=== PATIENT | female | born 1960 | race Caucasian/White ===

== ENCOUNTER 2016-10-12 14:38 | Emergency (ER) | payer MEDICARE, OTHER ==
[2016-10-12 15:01] VITALS: BP 131/82
[2016-10-12] MEDS ORDERED: HYDROcodone/ACETAMINOPHEN 1 EACH TABLET PO ONE (15:21)
--- NOTE | 2016-10-12 15:22 | ERNOTE ---
Lower Extremity HPI - General Lower Extremities Pain: leg: left Time Seen by Provider: 10/12/16 15:15 Source: patient Exam Limitations: no limitations - Immun/Allergies/Home Medications Immunizations: IMMUNIZATION HX Immunizations Up to Date Yes History of Influenza Vaccine Yes Hx Pneumococcal Vaccination Yes Allergies/Adverse Reactions: Allergies Allergy/AdvReac Type Severity Reaction Status Date / Time amoxicillin trihydrate AdvReac Mild rash Verified 07/26/16 20:22 [From Prevpac] bupropion HCl AdvReac Mild pain/crampi Verified 07/26/16 20:22 [From Wellbutrin] ng clarithromycin [From [facility]] AdvReac Mild rash Verified 07/26/16 20:22 lansoprazole [From [facility]] AdvReac Mild rash Verified 07/26/16 20:22 metformin AdvReac Mild Nausea Verified 07/26/16 20:22 phenobarbital AdvReac Mild Vomiting Verified 07/26/16 20:22 sulfadiazine AdvReac Mild rash Verified 07/26/16 20:22 Home Medications: HOME MEDICATIONS Atorvastatin Calcium [Lipitor] 40 mg PO HS 10/29/14 [Last Taken Unknown] Clonidine HCl [Catapres] 0.2 mg PO BID 10/29/14 [Last Taken Unknown] Lisinopril [Prinivil] 20 mg PO BID 10/29/14 [Last Taken Unknown] glipiZIDE [Glucotrol Xl] 7.5 mg PO BID 10/29/14 [Last Taken Unknown] Aspirin [Aspirin Enteric Coated] 81 mg PO DAILY 05/16/15 [Last Taken Unknown] Docusate Sodium [Colace] 100 mg PO BID 05/16/15 [Last Taken Unknown] Levothyroxine Sodium [Synthroid] 50 mcg PO DAILY 05/16/15 [Last Taken Unknown] Loratadine [Claritin] 10 mg PO DAILY 05/16/15 [Last Taken Unknown] Montelukast Sodium [Singulair] 10 mg PO HS 05/16/15 [Last Taken Unknown] Albuterol Sulfate [Albuterol Sulfate 2.5 MG/0.5ML] 2.5 mg IH Q4H PRN #100 vial.neb 05/29/15 [Last Taken Unknown] Blood Sugar Diagnostic, Drum [Accu-Chek Compact] 1 each ACHS #100 strip 05/29 [Last Taken Unknown] Fluoxetine HCl [Prozac] 40 mg PO DAILY #30 cap 05/29/15 [Last Taken Unknown] Fluticasone/Salmeterol [Advair 250-50 Diskus] 1 puff IH BID #1 inhaler 05/29/15 [Last Taken Unknown] LORazepam [Ativan] 0.5 mg PO TID #90 tablet 05/29/15 [Last Taken Unknown] Ammonium Lactate [Lac-Hydrin] 1 appl TP BID 12/11/15 [Last Taken Unknown] Calcium Carbonate [Calcium] 500 mg PO TID 12/11/15 [Last Taken Unknown] Ergocalciferol (Vitamin D2) [Vitamin D2] 2,000 units PO DAILY 12/11/15 [Last Taken Unknown] Furosemide [Lasix] 40 mg PO DAILY 12/11/15 [Last Taken Unknown] Gabapentin 300 mg PO TID 12/11/15 [Last Taken Unknown] HYDROcodone/ACETAMINOPHEN [Willet 5-325] 2 each PO BID PRN 12/11/15 [Last Taken Unknown] Hydrochlorothiazide 12.5 mg PO DAILY 12/11/15 [Last Taken Unknown] Ibuprofen [Motrin] 800 mg PO QID PRN 12/11/15 [Last Taken Unknown] Insulin Glargine,Hum.rec.anlog [Lantus Solostar] 35 unit SQ 1000 12/11/15 [Last Taken Unknown] Insulin Lispro [Humalog] 35 unit SQ 0700 12/11/15 [Last Taken Unknown] Meclizine HCl [Antivert] 25 mg PO TID PRN 12/11/15 [Last Taken Unknown] Pantoprazole Sodium [Protonix] 40 mg PO DAILY 12/11/15 [Last Taken Unknown] Polyethylene Glycol 3350 [Miralax] 17 gm PO DAILY 12/11/15 [Last Taken Unknown] Spironolactone [Aldactone] 25 mg PO TID 12/11/15 [Last Taken Unknown] Topiramate [Topamax] 50 mg PO BID 12/11/15 [Last Taken Unknown] Zolpidem Tartrate [Ambien] 10 mg PO HS 12/11/15 [Last Taken 03/02/16 21:00] Insulin Glargine,Hum.rec.anlog [Lantus] 50 units SC HS 03/03/16 [Last Taken Unknown] Insulin Lispro [Humalog] 15 unit SQ 1200,1700 03/03/16 [Last Taken Unknown] - History of Present Illness Narrative: Patient is here for a painful 'lump' on her left lateral knee that she has had for a week. It has increased in size and pain. She denies any injuries, never had similar symptoms, has a ganglion cyst on her left foot that she is seeing Dr Colón for, remote history or Gomez's cyst Modifying Factors - (Improves): Reports: rest Modifying Factors - (Worsens): Reports: movement, other - weight bearing Subsequent Symptoms: Denies: sensory loss, numbness Prior Treament: Denies: recently seen, similar symptoms before Review of Systems - Review of Systems Constitutional: Absent: recent illness, fever Respiratory: Absent: shortness of breath Cardiology: Absent: chest pain Gastrointestinal/Abdominal: Absent: abdominal pain Genitourinary: Present: no symptoms reported Musculoskeletal: Present: See HPI Skin: Absent: rash Neurological: Absent: headache, weakness, numbness - Patient's Past Medical History Patient History - Medical: Anemia, Anxiety, Diabetes Type 2, Diabetes Type 2 Insulin Dependent, Depression, GERD, Hypothyroidism, Migraines, Obesity Patient History - Cardiac/Respiratory: Hypertension Patient History - Cancer: No Hx of Cancer Patient History - Surgical Procedures: Appendectomy, Cholecystectomy, Colonoscopy, EGD, Gastric Bypass, Other Patient History - Other: None - Family History Mother Family History - Cardiac/Respiratory: Hypertension, Hyperlipidemia, Myocardial Infarction - Social History Living Situations: alone Abuse History: No History of abuse Psych History: Hx of Anxiety, Hx of Depression Smoking Status: Never smoker Do you dip or chew tobacco: No Patient requests Smoking Cessation Consult: No Initiate information on Smoking Cessation: No Alcohol Use: occasionally Drug Use: none - Immunizations Immunizations Up to Date: Yes Hx Pneumococcal Vaccination: Yes History of Influenza Vaccine: Yes Physical Exam - Physical Exam General Appearance: Present: wd/wn, alert, no apparent distress Respiratory: Present: no respiratory distress Peripheral Pulses: N=norm/S=strong/W=weak/B=bound/A=absent: Dorsalis-pedis (L): Normal Extremity Exam: Present: normal except - - left anteriolateral knee about 2x3cm painful swelling, firm, no erythema, no increased temperature Neurological Exam: Present: alert, oriented, normal mood/affect, no motor/ sensory deficits - except decreased sensation on feet due to neuropathy Skin Exam: Present: normal color, warm/dry ED Progress - Vital Signs Patient's Vital Signs:: I have reviewed the patient's vital signs. Vital Signs: Vital Signs 10/12/16 14:52 Temperature 35.8 C L Pulse Rate 77 Respiratory 18 Rate Blood Pressure 131/82 O2 Sat by Pulse 97 Oximetry - X-Ray X-Ray #1 X-Ray: knee - no acute findings Interpretation: Interp. by me - Progress/Reassessment Chief Complaint: Lower Extremity Pain/ Injury Progress Note-Subjective: 10/12/16 16:15 discussed with shay Pelaez to order out patient ultrasound for further evaluation. 10/12/16 16:25 discussed results and plan with patient Departure Clinical Impression: Knee pain, left Qualifiers: Chronicity: acute Qualified Code(s): M25.562 - Pain in left knee - Departure Disposition: Home self-care Condition: Good Instructions: Knee Pain, [id number], Form - Excuse from Work, School, or Physical Activity Additional Instructions: take your pain medications as instructed limit your activities follow up for the ultrasound on Friday call your doctor for a follow up appointment Referrals: Saray Ramirez DO [Staff Physician] -
--- OUTSIDE RECORDS SUMMARY | 2016-10-12 15:24 | XMS REPORT | Continuity of Care Document ---
:1960 Author Organization [facility] ([facility]) Address [address] [place] [address] Phone [phone] Care Team Providers Name Role Phone Althea Raymundo Primary Care Provider [phone] Source Comments This disclosure is being made pursuant to the Care Everywhere program, applicable federal and state laws, and may not contain all informaitonavailable regarding this patient.[facility] ([facility]) Active Allergies and Adverse Reactions Allergen Noted Date Severity Reactions Comments Bupropion 11/27/2010 Urticaria (Hives),Rash Fluconazole 11/27/2010 Urticaria (Hives),Rash Liraglutide 11/27/2010 Urticaria (Hives),Rash Metformin 11/27/2010 Urticaria (Hives),Rash Phenobarbital Pruritus Sulfadoxine Urticaria (Hives) Current Medications Prescription Sig. Disp. Refills Start End Status Date Date SUPPLY FREESTYLE LITE by In Vitro route 1 Each 0 11/13/19 Active meter daily. 14 Indications: TYPE 2 DIABETES MELLITUS SUPPLY blood glucose 3 times daily. 100 Strip 04/14/20 Active test strips Indications: 14 DIABETES MELLITUS SUPPLY FREESTYLE As Directed 150 Each 04/14/20 Active lancets Indications: 14 DIABETES MELLITUS aspirin 81 mg EC Take 1 Tab by 60 Tab 04/14/20 Active tablet mouth daily. 14 Indications: MYOCARDIAL INFARCTION PREVENTION zolpiDEM 10 mg tablet Take by mouth at Active bedtime as needed. ammonium lactate 12 % Apply topically Active lotion as needed. Rub into affected area well. calcium carbonate (500 Take 500 mg by Active mg Ca) 1250 mg tablet mouth daily. cloNIDine 0.1 mg/24 hr Apply 1 Patch on Active patch the skin every week. FLUoxetine 40 mg Take 40 mg by Active capsule mouth daily. gabapentin 300 mg Take 300 mg by Active capsule mouth 3 times daily. furosemide 20 mg Take 20 mg by Active tablet mouth 3 times daily. levothyroxine 50 mcg Take 50 mcg by Active tablet mouth every morning before breakfast. loratadine 10 mg Take 10 mg by Active tablet mouth daily. LORazepam 0.5 mg Take 0.5 mg by Active tablet mouth every 4 hours as needed. meclizine 25 mg tablet Take 25 mg by Active mouth 3 times daily as needed. topiramate 50 mg Take 50 mg by Active tablet mouth 2 times daily. cholecalciferol 50,000 Take 1 capsule by Active unit capsule mouth every week. fluticasone-salmeterol Use 1 Puff by Active (ADVAIR 250-50) inhalation every inhaler 12 hours. insulin lispro 35 units at 50 mL 3 02/29/20 Active (HumaLOG KWIKPEN) 100 breakfast, 15 at 16 unit/mL (3 mL) lunch & 15 at injection pen dinner cloNIDine HCl 0.2 mg Take 0.5 tablets 120 tablet 6 02/29/20 Active tablet (0.1 mg total) by 16 mouth at bedtime. cyclobenzaprine 10 mg Take 1 tablet (10 60 tablet 0 02/29/20 Active tablet mg total) by 16 mouth 3 times daily as needed. docusate 100 mg Take 1 capsule 60 capsule 0 02/29/20 Active capsule (100 mg total) by 16 mouth 2 times daily. fluticasone 50 Use 2 Sprays into 02/29/20 Active mcg/Actuation nasal both nostrils 16 spray daily. lisinopril 20 mg Take 0.5 tablets 120 tablet 6 02/29/20 Active tablet (10 mg total) by 16 mouth daily. Replace Losartan. pantoprazole Take 1 tablet (40 60 tablet 3 02/29/20 Active (PROTONIX) 40 mg EC mg total) by 16 tablet mouth daily. Patient verified/ confirmed that she tolerates medication well. atorvastatin 40 mg Take 1 tablet (40 60 tablet 3 02/29/20 Active tablet mg total) by 16 mouth every evening. Replace Zocor. famotidine 40 mg Take 1 tablet (40 60 tablet 2 02/29/20 Active tablet mg total) by 16 mouth every evening. ibuprofen 800 mg Take 1 tablet 90 tablet 0 08/04/20 Active tablet (800 mg total) by 16 mouth every 6 hours as needed. SUPPLY BD ULTRA-FINE Inject 100 Each 3 09/24/19 Active NOLVIA 32 x 4 MM pen subcutaneously 4 17 needle times daily. polyethylene glycol Take 17 g by Active 3350 17 gram packet mouth daily as needed. amitriptyline 50 mg Take 50 mg by Active tablet mouth at bedtime. HYDROcodone-acetaminop Take 1 tablet by Active hen 5-325 mg per mouth every 6 tablet hours as needed. albuterol-ipratropium Use 3 mL by Active 2.5-0.5 mg/3 mL inhalation every inhalation solution 4 hours as needed for Wheezing or Shortness of breath. insulin glargine Inject 50 Units Active (LanTUS SOLOSTAR) 100 subcutaneously 2 unit/mL (3 mL) times daily. injection pen SUPPLY BD ULTRA-FINE inject 100 Each 3 04/14/20 Discontinued NOLVIA 32 x 4 MM pen subcutaneously 4 14 017 needle times daily. Indications: TYPE 2 DIABETES MELLITUS acetaminophen 325 mg Take 325 mg by Discontinued tablet mouth every 4 017 hours as needed. albuterol 5 mg/mL Use 2.5 mg by Discontinued nebulizer solution inhalation every 017 4 hours as needed. polyethylene glycol Take 17 g by Discontinued 3350 17 gram packet mouth daily as 017 needed. cefUROXime (CEFTIN) Take 500 mg by Discontinued 500 mg tablet mouth 2 times 017 daily. gentamicin 0.1 % Apply topically 2 Discontinued ointment times daily. 017 glipiZIDE 10 mg tablet Take 1.5 tablets 180 tablet 6 02/29/20 Discontinued (15 mg total) by 16 017 mouth 2 times daily with meals. hydrochlorothiazide Take 1 tablet 60 tablet 6 02/29/20 Discontinued 12.5 mg tablet (12.5 mg total) 16 017 by mouth daily. 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 Cataract, senile 02/13/2011 DM type 2 (diabetes mellitus, type 2) 11/27/2010 HTN (hypertension) 11/27/2010 GERD (gastroesophageal reflux disease) 11/27/2010 Dyslipidemia 11/27/2010 JAY (obstructive sleep apnea) 11/27/2010 Morbid obesity 11/04/2008 Resolved Problems Problem Noted Date Resolved Date Rash and nonspecific skin eruption 06/18/2013 11/29/2013 Foot pain 05/13/2013 01/31/2014 Ganglion cyst 02/16/2013 01/31/2014 BPPV (benign paroxysmal positional vertigo) 08/18/2012 04/27/2014 Colon cancer screening 10/01/2011 11/29/2013 Most Recent Encounters Date Type Specialty Providers Description 10/10/2016 Telephone Pharmacy Nica Chavira, Chief Comp: [facility] Scheduling 10/07/2016 Telephone General Internal Jf Chief Comp: Advice Medicine Mariza Adams MD Only 10/03/2016 Office Visit General Internal Kathryn Perera Subj: Upcoming Appt Medicine MD Ashley Reminder 10/03/2016 Office Visit General Internal Default, Other Subj: Appointment Medicine Billg - Defo Scheduled 10/03/2016 Telephone Pharmacy Nica Chavira, Chief Comp: [facility] Scheduling 10/02/2016 Nurse Triage Med GI/Hepatology Tracey Hodges, Chief Comp: Post- op RN Follow-up Call 10/01/2016 Hospital Encounter Med GI/Hepatology Gil, Dx: Weight loss MD Snehal 09/30/2016 Telephone Pharmacy Nica Chavira, Chief Comp: [facility] Scheduling 09/25/2016 Telephone General Internal Kathryn Perera Chief Comp: Follow- up Alba Ramirez MD 09/24/2016 Office Visit General Internal Torsten Conte Subj: Appointment Medicine MD Shima Scheduled 09/24/2016 Hospital Encounter Radiology Lance Cosby, Dx: Weight huey VERONICA 09/24/2016 Office Visit Pathology Kathryn Perera Dx: DM (michael Ramirez MD mellitus), type 2 Lab Services, Irl with neurological complications 09/24/2016 Office Visit General Internal Torsten Conte Dx: DM (diabetes Medicine MD Shima mellitus), type 2 Default, Other with neurological Billg - Defo complications Kathryn Perera (Primary Dx) MD Bhumika Ramirez Katherine, MD 09/24/2016 Ancillary Orders General Internal Bhumika Dx: Weight loss Medicine MD Sulema (Primary Dx) Immunizations Name Dates Previously Given Next Due Influenza, PF 07/30/2012,10/01/2011 Influenza, quadrivalent PF 06/03/2016,05/25/2015,05/13/2013 Novel Influenza H1N1 05/11/2009 Pneumococcal Conjugate, PCV13 (Prevnar 13) 06/03/2016 Pneumococcal Polysaccharide, PPSV23 05/27/2015,03/19/2011 (Pneumovax 23) Tdap 09/10/2015,03/19/2011 Social History Tobacco Use Types Packs/Day Years Used Date Never Smoker Smokeless Tobacco: Never Used Tobacco Cessation:Counseling Given: Yes Comments: Alcohol Use Drinks/Week oz/Week Comments No 2 Glasses of wine once a week 2 Standard drinks or equivalent Last Filed Vital Signs Vital Sign Reading Time Taken Blood Pressure 149/69 10/01/2016 9:41 AM [employer] Pulse 73 09/24/2016 12:43 PM [employer] Temperature 36.3 C (97.3 F) 10/01/2016 8:47 AM [employer] Respiratory Rate 16 10/01/2016 7:22 AM [employer] Height 1.676 m (5' 5.98") 02/29/2016 8:50 AM CDT Weight 120.45 kg (265 lb 8.7 oz) 10/01/2016 7:15 AM [employer] Body Mass Index 42.88 10/01/2016 7:15 AM [employer] Oxygen Saturation 96% 10/01/2016 9:41 AM [employer] Plan of Care Patient Goal Type Goal Result Component % HBA1C below 7.0 Lifestyle declined wishes Date Type Specialty Providers Description 10/28/2016 Appointment General Internal Kathryn Perera MD [address] [place] [phone] (Fax) Subj: Appointment Medicine Ivette Eli MD [address] [place] [phone] (Fax) Rescheduled Althea Raymundo MD [address] [place] [phone] (Fax) 12/05/2016 Appointment General Internal Sulema Restrepo MD [address] [place] [phone] (Fax) Subj: Appointment Medicine Althea Raymundo MD [address] [place] [phone] (Fax) Scheduled Health Maintenance Due Date Last Done Comments HCV Screening 1960 Hepatitis B Vaccine (1 of 3 - 1960 Primary Series) MMR Vaccine 01/31/1976 Sigmoidoscopy Colon Cancer 01/31/2008 Screening FOBT Colon Cancer Screening 09/29/2013 09/29/2012 DIABETIC: Retinal Eye Exam 05/13/2014 05/13/2013, Additional history exists 05/13/2013, 05/13/2012 DIABETIC: Foot Exam 10/25/2014 10/25/2013, Additional history exists 10/25/2013, 08/18/2012 DIABETIC: Cholesterol 04/27/2015 04/27/2014, Additional history exists 02/09/2013, 03/04/2012 Diabetic: Hdl 04/27/2015 04/27/2014, Additional history exists 02/09/2013, 03/04/2012 Diabetic: Ldl 04/27/2015 04/27/2014, Additional history exists 02/09/2013, 03/04/2012 DIABETIC: Triglycerides 04/27/2015 04/27/2014, Additional history exists 02/09/2013, 03/04/2012 Mammogram 01/29/2017 2016, Additional history exists 09/20/2014, 10/26/2013 DIABETIC: Microalbumin 02/28/2017 02/29/2016, Additional history exists 04/27/2014, 02/16/2013 DIABETIC: Hemoglobin A1C 03/24/2017 09/24/2016, Additional history exists 02/29/2016, 01/31/2014 Cervical Cancer Screening 08/09/2018 08/09/2013 Colonoscopy 03/24/2023 03/24/2013 Td Vaccine 09/10/2025 09/10/2015, 03/19/2011 Tdap Vaccine Completed 09/10/2015, 03/19/2011 Influenza Vaccine: Seasonal Completed 06/03/2016, Additional history exists 05/25/2015, 05/13/2013 Pneumococcal Vaccine Completed 06/03/2016, 05/27/2015, 03/19/2011 Results from Last 3 Months ENDOSCOPY UPPER (10/04/2016 1:09 PM) Narrative Snehal Cordero MD 10/04/20161:09 PM ENDOSCOPY UPPER Upper GI Procedure Note PROCEDURE DATE:10/01/2016 PROCEDURE: Upper gastrointestinal endoscopy Pre-procedure Diagnosis: GERD, unintentional weight loss ATTENDING STAFF: Chen Cordero MD REFERRING PHYSICIAN: This procedure was arranged by Sulema Bai MD CONSENT FOR OPERATION OR PROCEDUREThe risks, benefits, and alternatives of the procedure and sedation were discussed with the patient in detail today and written consent was obtained. The patient elects to proceed with the procedure and sedation as outlined. PROCEDURAL MEDICATIONS: Propofol 240 mg IV Oxygen at 2L/min NC Lidocaine spray The procedure sedation was given under my direction from 10/01/16 8:23 AM to 178:35 AM. PHOTOGRAPHS: Yes BIOPSIES: Yes DESCRIPTION OF PROCEDURE: Prior to proceeding, the patient's name, date of , and procedure to be undertaken was verified at the time out.The patient was then placed in the left lateral decubitus position and was monitored continuously with pulse oximetry, blood pressure monitoring, and direct observations. The oropharynx was adequately anesthetized with Lidocaine spray.Adequate analgesia was achieved. Anendoscope was then placed in the oropharynx and advanced. The vocal cords were visualized and the esophagus was easily intubated. The endoscope was advanced under direct vision to second portion of the duodenum. FINDINGS: Esophagus: The mucosa of the esophagus was normal without erythema, edema, ulcers, or varices. The lower esophageal sphincter was located at 40 cm from the incisors. There was a small 3 mm island of salmon colored mucosa above GEJ. Biopsies were obtained. Stomach: The mucosa of the stomach was normal without signs of inflammation. There were no ulcers or erosions and no masses or polyps were present. Retroflexion of the scope in the fundus confirmed the absence of a hernia/gastric varices. Postsurgical changes of VBG with residual deformation of the gastric fundus . Duodenum: The bulb was of normal caliber and not scarred or deformed. The mucosa from D1 to D-2 was normal and no ulcers or erosions were present. COMPLICATIONS: There were no complications or problems during the procedure and the patient returned to the recovery area in good condition. IMPRESSIONS: 3 mm possible Figueroa's and post surgical changes of VBG. These finding will no explain weight loss. Repeat EGD in 3-5 years. PLAN: Follow up with PCP. Chen Michaud MD Clinical Tool Maintenance Worker Division of Gastroenterology-Hepatology Department of Internal Medicine [facility] I have examined this chart produced by the scribe and find it to be accurate. Post Sedation Evaluation Blood pressure: 148/74 (178:17 AM) Pulse: 69 (178:23 AM) 71 (178:23 AM) Temperature: 97 (177:22 AM) Temp. Source: Tympanic (177:22 AM) Respiratory rate: 11 (178:23 AM) SpO2: 100 (178:23 AM) Pain: None Nausea and Vomiting: Absence of nausea/vomiting (139:40 AM) Level of Consciousness: Alert Airway Patency: Full I have personally evaluated the patient prior to discharge. Snehal Cordero MD Addendum: Path Gastroesophageal junction, biopsy: Inflamed squamocolumnar mucosa consistent with reflux. Focal intestinal metaplasia. SURGICAL PATHOLOGY EXAM (10/01/2016 8:33 AM) Component Value Range Case Report Surgical Pathology Case: [id number] Authorizing Provider:Snehal Cordero, Collected: 10/01/2016 08:33 AM Ordering Location: [facility] Received: 10/01/2016 09:46 AM Diseases: Procedure Unit Pathologist: Hi Flores MD Specimen:Esophagus, GEJ Diagnosis Gastroesophageal junction, biopsy: Inflamed squamocolumnar mucosa consistent with reflux. Focal intestinal metaplasia. I have personally reviewed this case and edited the report as necessary. Clinical Information GEJ- short Figueroa's? Gross Description Received in formalin, in a container labeled Kendra Lewis, hospital number, and "GEJ", are four zimmerman-pink soft tissue fragments, 0.2 to 0.3 cm in greatest dimension. Submitted in toto in A1. LRL/tkr Microscopic Description Microscopic examination performed and supports the diagnosis. Performed by:Drew Lovett DO, R3 Specimen Tissue - Esophagus BLOOD GLUCOSE, BEDSIDE (10/01/2016 7:39 AM) Component Value Range Glucose, Accu-Chek 331(H) 65-99 mg/dL Specimen Blood, capillary CHEST- PA& LATERAL (09/24/2016 2:47 PM) Impressions Findings and impression: Grossly stable exam with no new focal lung infiltrate, pleural disease or pulmonary edema. Trachea central. 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 Narrative Procedure: CHEST- PA & LATERAL Clinical Indication: History of COPD. Technique: PA and lateral chest radiograph Comparison: 02/09/2013. Procedure Note Dave, Incoming Imaging Results - FriSep 24, 2016 3:12 PM [employer] Procedure: CHEST- PA & LATERAL Clinical Indication: History of COPD. Technique: PA and lateral chest radiograph Comparison: 02/09/2013. IMPRESSION Findings and impression: Grossly stable exam with no new focal lung infiltrate, pleural disease or pulmonary edema. Trachea central. 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 B-HYDROXYBUTYRATE (09/24/2016 2:32 PM) Component Value Range Beta-Hydroxybutyrate <0.1 0.0-0.3 mEq/L Specimen Blood OSMOLALITY, PLASMA (09/24/2016 2:32 PM) Component Value Range Osmolality, Plasma 295 275-295 mOsm/kg Specimen Blood VITAMIN B12 (09/24/2016 2:32 PM) Component Value Range Vitamin B12 608Comment: 211-946 pg/mL New analytical immunoassay with different reference range instituted 06/22/2013 AT 830AM Normal 211 - 946 pg/mL Losnbtotcyrta366 - 210 pg/mL Deficient<150pg/mL Specimen Blood HEPATIC FUNCTION PANEL (09/24/2016 2:32 PM) Component Value Range Albumin 3.7 3.4-4.8 g/dL ALP 159(H) 35-104 U/L Bilirubin Total 0.6 <=1.2 mg/dL Bilirubin, Direct <0.2 0.0-0.2 mg/dL AST 14Comment: 0-32 U/L Adult reference ranges updated on 06/22/13 at 830am ALT 14Comment: 0-33 U/L The upper limit of normal for alanine aminotransferase (ALT) reference ranges for adults is controversial with some authorities recommending limit as low as 30 U/L for males and 19 U/L for females. Th ere is increased incidence of subclinical liver disease (e.g., early steatohepatitis) in patients with ALT values in the range of 31-41 U/L for males and 20-33 U/L for females. ALT values should alway s be interpreted in conjunction with clinical history, physical examination findings, and, if applicable, data from other diagnostic tests. Total Protein 7.4 6.0-8.0 g/dL Specimen Blood BASIC METABOLIC PANEL W/ CALCIUM (CHEM 8) (09/24/2016 2:32 PM) Component Value Range Sodium 133(L) 135-145 mEq/L Potassium 3.6 3.5-5.0 mEq/L Chloride 92(L) 95-107 mEq/L CO2 28 22-29 mEq/L Anion Gap 14 8-18 mEq/L BUN 15 10-20 mg/dL Creatinine 0.7Comment: 0.5-1.0 mg/dL Creatinine switched to enzymatic method on 12/04/2010.GFR equation switched to IDMS-traceable MDRD equation on 12/04/2010. Calculated GFR values are not valid in clinical settings where serum creatinine is changing. Glucose 506(HH)Comment: 65-99 mg/dL The Expert Committee on the Diagnosis and Classification of Diabetes has defined impaired fasting glucose as greater than or equal to 100 mg/dL but less than 126 mg/dL.(Diabetes Care 28 (Suppl 1)S41,2005) Calcium 8.9 8.5-10.5 mg/dL Calculated GFR 86 >60 mL/min/1.73 m2 Specimen Blood HEMOGLOBIN A1C (09/24/2016 2:32 PM) Component Value Range Hemoglobin A1c 14.8(H)Comment: 4.8-6.0 % Glycemic Control Guidelines: Non-diabetic <6% Goal <7% Therapeutic Action >8% Estimated Average Glucose 378Comment: mg/dL The estimated average glucose (eAG) calculated from the HbA1c changed on 16/03.See Laboratory Bulletins in the Department of Pathology Laboratory Services Handbook for a full discussion.Not e that the new calculated glucose will now be lower.The A1c result is unchanged. Specimen Whole Blood
[2016-10-12] MEDS ORDERED: HYDROcodone/ACETAMINOPHEN 1 EACH TABLET ONE (15:28)
== END 2016-10-12 16:49 | disposition home or self-care (01) ==
LOC: ER 14:38
DX: M25.562 Pain in left knee (principal); E11.9 Type 2 diabetes mellitus without complications; Z79.4 Long term (current) use of insulin; I10 Essential (primary) hypertension; F41.9 Anxiety disorder, unspecified

== ENCOUNTER 2016-11-14 17:57 | Emergency (ER) | payer MEDICARE, OTHER ==
[2016-11-14 18:07] VITALS: BP 140/88
[2016-11-14] MEDS ORDERED: KETOROLAC TROMETHAMINE 60 MG/2 ML VIAL IM ONE (18:40)
--- NOTE | 2016-11-14 19:00 | ERNOTE ---
Lower Extremity HPI - Narrative Date of Service: 11/14/16 - General Lower Extremities Pain: leg: left - cramping Time Seen by Provider: 11/14/16 18:40 Source: patient Exam Limitations: no limitations - Immun/Allergies/Home Medications Immunizations: IMMUNIZATION HX Immunizations Up to Date Yes History of Influenza Vaccine Yes Hx Pneumococcal Vaccination Yes Allergies/Adverse Reactions: Allergies Allergy/AdvReac Type Severity Reaction Status Date / Time amoxicillin trihydrate AdvReac Mild rash Verified 11/14/16 18:07 [From Prevpac] bupropion HCl AdvReac Mild pain/crampi Verified 11/14/16 18:07 [From Wellbutrin] ng clarithromycin [From [facility]] AdvReac Mild rash Verified 11/14/16 18:07 lansoprazole [From [facility]] AdvReac Mild rash Verified 11/14/16 18:07 metformin AdvReac Mild Nausea Verified 11/14/16 18:07 phenobarbital AdvReac Mild Vomiting Verified 11/14/16 18:07 sulfadiazine AdvReac Mild rash Verified 11/14/16 18:07 Home Medications: HOME MEDICATIONS Atorvastatin Calcium [Lipitor] 40 mg PO HS 10/29/14 [Last Taken Unknown] Clonidine HCl [Catapres] 0.2 mg PO BID 10/29/14 [Last Taken Unknown] Lisinopril [Prinivil] 20 mg PO BID 10/29/14 [Last Taken Unknown] glipiZIDE [Glucotrol Xl] 7.5 mg PO BID 10/29/14 [Last Taken Unknown] Aspirin [Aspirin Enteric Coated] 81 mg PO DAILY 05/16/15 [Last Taken Unknown] Docusate Sodium [Colace] 100 mg PO BID 05/16/15 [Last Taken Unknown] Levothyroxine Sodium [Synthroid] 50 mcg PO DAILY 05/16/15 [Last Taken Unknown] Loratadine [Claritin] 10 mg PO DAILY 05/16/15 [Last Taken Unknown] Montelukast Sodium [Singulair] 10 mg PO HS 05/16/15 [Last Taken Unknown] Albuterol Sulfate [Albuterol Sulfate 2.5 MG/0.5ML] 2.5 mg IH Q4H PRN #100 vial.neb 05/29/15 [Last Taken Unknown] Blood Sugar Diagnostic, Drum [Accu-Chek Compact] 1 each ACHS #100 strip 05/29 [Last Taken Unknown] FLUoxetine HCL [Prozac] 40 mg PO DAILY #30 cap 05/29/15 [Last Taken Unknown] Fluticasone/Salmeterol [Advair 250-50 Diskus] 1 puff IH BID #1 inhaler 05/29/15 [Last Taken Unknown] LORazepam [Ativan] 0.5 mg PO TID #90 tablet 05/29/15 [Last Taken Unknown] Ammonium Lactate [Lac-Hydrin] 1 appl TP BID 12/11/15 [Last Taken Unknown] Calcium Carbonate [Calcium] 500 mg PO TID 12/11/15 [Last Taken Unknown] Ergocalciferol (Vitamin D2) [Vitamin D2] 2,000 units PO DAILY 12/11/15 [Last Taken Unknown] Furosemide [Lasix] 40 mg PO DAILY 12/11/15 [Last Taken Unknown] Gabapentin 300 mg PO TID 12/11/15 [Last Taken Unknown] HYDROcodone/ACETAMINOPHEN [Sargent 5-325] 2 each PO BID PRN 12/11/15 [Last Taken Unknown] Hydrochlorothiazide 12.5 mg PO DAILY 12/11/15 [Last Taken Unknown] Ibuprofen [Motrin] 800 mg PO QID PRN 12/11/15 [Last Taken Unknown] Insulin Glargine,Hum.rec.anlog [Lantus Solostar] 35 unit SQ 1000 12/11/15 [Last Taken Unknown] Insulin Lispro [Humalog] 35 unit SQ 0700 12/11/15 [Last Taken Unknown] Meclizine HCl [Antivert] 25 mg PO TID PRN 12/11/15 [Last Taken Unknown] Pantoprazole Sodium [Protonix] 40 mg PO DAILY 12/11/15 [Last Taken Unknown] Polyethylene Glycol 3350 [Miralax] 17 gm PO DAILY 12/11/15 [Last Taken Unknown] Spironolactone [Aldactone] 25 mg PO TID 12/11/15 [Last Taken Unknown] Topiramate [Topamax] 50 mg PO BID 12/11/15 [Last Taken Unknown] Zolpidem Tartrate [Ambien] 10 mg PO HS 12/11/15 [Last Taken 03/02/16 21:00] Insulin Glargine,Hum.rec.anlog [Lantus] 50 units SC HS 03/03/16 [Last Taken Unknown] Insulin Lispro [Humalog] 15 unit SQ 1200,1700 03/03/16 [Last Taken Unknown] - History of Present Illness Narrative: 56-year-old female presents to the emergency room for complaints of bilateral leg cramping. States that she has had this before and he had low potassium. States that today while walking her right leg gave out and she fell and landed on her right shoulder. She does have right shoulder pain at this time. She has not taken anything for her pain. Date (Duration): 11/14/16 Occurred: this morning Location of Incident: [facility] Method of Injury: Reports: fell Reason for Fall: Reports: tripped Loss of Consciousness: Reports: no loss of consciousness Associated Symptoms: Denies: unable to bear weight, snapping, popping sensation Other Injuries: Reports: other - right shoulder Subsequent Symptoms: Reports: motor loss - right shoulder Prior Treament: Reports: similar symptoms before Review of Systems - Review of Systems Constitutional: Present: no symptoms reported EYE: Present: no symptoms reported ENT: Present: no symptoms reported Respiratory: Present: no symptoms reported Cardiology: Present: no symptoms reported Gastrointestinal/Abdominal: Present: no symptoms reported Genitourinary: Present: no symptoms reported Musculoskeletal: Present: See HPI Skin: Present: no symptoms reported Neurological: Present: See HPI, other - decreased ROM to right arm Endocrine: Present: no symptoms reported Hematologic/Lymphatic: Present: no symptoms reported Psych: Present: no symptoms reported All Other Systems: All systems neg except as marked - Patient's Past Medical History Patient History - Medical: Anemia, Anxiety, Diabetes Type 2, Diabetes Type 2 Insulin Dependent, Depression, GERD, Hypothyroidism, Migraines, Obesity Patient History - Cardiac/Respiratory: Hypertension Patient History - Cancer: No Hx of Cancer Patient History - Surgical Procedures: Appendectomy, Cholecystectomy, Colonoscopy, EGD, Gastric Bypass, Other Patient History - Other: None - Family History Mother Family History - Cardiac/Respiratory: Hypertension, Hyperlipidemia, Myocardial Infarction - Social History Living Situations: home Abuse History: No History of abuse Psych History: Hx of Anxiety, Hx of Depression Alcohol Use: occasionally Drug Use: none - Immunizations Immunizations Up to Date: Yes Hx Pneumococcal Vaccination: Yes History of Influenza Vaccine: Yes Physical Exam - Physical Exam Narrative: patient has difficulty with abduction of right arm. bilateral hand grasp equal, knee reflex equal. General Appearance: Present: wd/wn, alert, no apparent distress Eye Exam: Normal inspection: bilateral Ears, Nose, Throat: Present: normal ENT inspection Neck: Present: normal inspection Respiratory: Present: no respiratory distress, chest nontender, lungs clear Cardiovascular/Chest: Present: regular rate, rhythm, normal peripheral pulses Peripheral Pulses: N=norm/S=strong/W=weak/B=bound/A=absent: Radial (R): Normal, Radial (L): Normal, Dorsalis-pedis (R): Normal, Dorsalis-pedis (L): Normal Gastrointestinal/Abdominal: Present: normal bowel sounds, soft Back Exam: Present: normal inspection, normal range of motion Extremity Exam: Present: normal except -, decreased range of motion - right shoulder Neurological Exam: Present: alert, oriented, normal mood/affect, no motor/ sensory deficits, lap layer II-XII nml as tested DTR: N=norm/NB=norm/brisk/A=abs/DD=dull/dimin/HC=hyperactive: Knee (R): Normal, Knee (L): Normal Skin Exam: Present: normal color, warm/dry Lymphatic Exam: Present: no adenopathy ED Progress - Vital Signs Vital Signs: Vital Signs 11/14/16 18:02 Temperature 35.9 C L Pulse Rate 67 Respiratory 12 Rate Blood Pressure 140/88 O2 Sat by Pulse 95 Oximetry - X-Ray X-Ray #1 X-Ray: shoulder Interpretation: Reviewed by me X-ray Comments: Shoulder 3 of More Views RT * Decreased mineralization of bone suggestive of underlying osteopenia or osteoporosis. No definable fracture lucency or cortical discontinuity. Joint spaces are in gross normal alignment without subluxation or dislocation. Acromioclavicular joint in normal alignment without abnormal widening. Degenerative changes of the right acromioclavicular joints noted. Patient has a prominent keel like osteophyte projecting inferiorly and anteriorly from the acromion which can contribute to impingement. Mild reactive sclerosis at the greater tuberosity of the proximal humerus may indicate underlying rotator cuff pathology. Soft tissues are grossly normal. Visualized portions of the chest grossly unremarkable. IMPRESSION: 1. No definable fracture or dislocation. 2. Right acromioclavicular joint degenerative arthropathy. 3. Keel-like osteophyte of the acromion which can contribute to impingement. 4. Findings suggestive of underlying rotator cuff pathology. Correlate clinically. Electronically signed by Wendi Eason M.D.. - Progress/Reassessment Chief Complaint: Lower Extremity Pain/ Injury Plan - Plan Plan: patient refused to have US of legs to check for blood clots. Patients calves are not red, swollen or painful. She does state she has cramps in her calves. Patient educated on need for procedure. Patient states she will follow up with her PCP in the AM. Departure Clinical Impression: Hyperglycemia due to type 1 diabetes mellitus - Departure Disposition: Home Follow Up Needed Condition: Stable Instructions: Hyperglycemia, Klmi-en-Auzu Additional Instructions: Continue any previous home medications. Follow-up through primary care doctor in the next 2-3 days. Return to the emergency room if symptoms persist or become worse. Referrals: Saray Ramirez DO [Primary Care Provider] -
[2016-11-14] MEDS ORDERED: KETOROLAC TROMETHAMINE 30 MG/ML VIAL ONE (19:04)
[2016-11-14 19:05] LABS: Hematocrit 38.2 % (37.0-47.0); Mean Cell Volume 83.6 fl (78-100); Mean Corpuscular Hemoglobin 26.3 pg (27-31); Mean Corpuscular Hgb Conc 31.4 g/dl (32-36); Neutrophil # 6.1 K/mm3 (1.3-6.0); Neutrophil % 53.9 % (42-75.0); Platelet Count 362 K/mm3 (150-450); Red Blood Count 4.57 M/mm3 (4.2-5.4); Red Cell Distribution Width 13.8 % (11.5-14.0); White Blood Count 11.3 K/mm3 (4.0-10.5)
--- OUTSIDE RECORDS SUMMARY | 2016-11-14 19:12 | XMS REPORT | Continuity of Care Document ---
:1960 Author Organization [facility] ([facility]) Address [address] [place] [address] Phone [phone] Care Team Providers Name Role Phone Althea Raymundo Primary Care Provider [phone] Source Comments This disclosure is being made pursuant to the Care Everywhere program, applicable federal and state laws, and may not contain all informaitonavailable regarding this patient.[facility] ([facility]) Active Allergies and Adverse Reactions Allergen Noted Date Severity Reactions Comments Bupropion 11/27/2010 Urticaria (Hives),Rash Fluconazole 11/27/2010 Urticaria (Hives),Rash Liraglutide 11/27/2010 Urticaria (Hives),Rash Metformin 11/27/2010 Urticaria (Hives),Rash Phenobarbital Pruritus Sulfadoxine Urticaria (Hives) Current Medications Prescription Sig. Disp. Refills Start Date End Date Status SUPPLY FREESTYLE LITE by In Vitro route 1 Each 0 11/12/2013 Active meter daily. Indications: TYPE 2 DIABETES MELLITUS SUPPLY blood glucose 3 times daily. 100 Strip 04/14/2014 Active test strips Indications: DIABETES MELLITUS SUPPLY FREESTYLE As Directed 150 Each 04/14/2014 Active lancets Indications: DIABETES MELLITUS aspirin 81 mg EC Take 1 Tab by mouth 60 Tab 04/14/2014 Active tablet daily. Indications: MYOCARDIAL INFARCTION PREVENTION zolpiDEM 10 mg tablet Take by mouth at Active bedtime as needed. ammonium lactate 12 % Apply topically as Active lotion needed. Rub into affected area well. calcium carbonate Take 500 mg by Active (500 mg Ca) 1250 mg mouth daily. tablet cloNIDine 0.1 mg/24 Apply 1 Patch on Active hr patch the skin every week. FLUoxetine 40 mg Take 40 mg by mouth Active capsule daily. gabapentin 300 mg Take 300 mg by Active capsule mouth 3 times daily. furosemide 20 mg Take 20 mg by mouth Active tablet 3 times daily. levothyroxine 50 mcg Take 50 mcg by Active tablet mouth every morning before breakfast. loratadine 10 mg Take 10 mg by mouth Active tablet daily. LORazepam 0.5 mg Take 0.5 mg by Active tablet mouth every 4 hours as needed. meclizine 25 mg Take 25 mg by mouth Active tablet 3 times daily as needed. topiramate 50 mg Take 50 mg by mouth Active tablet 2 times daily. cholecalciferol Take 1 capsule by Active 50,000 unit capsule mouth every week. fluticasone-salmetero Use 1 Puff by Active l (ADVAIR 250-50) inhalation every 12 inhaler hours. insulin lispro 35 units at 50 mL 3 02/29/2016 Active (HumaLOG KWIKPEN) 100 breakfast, 15 at unit/mL (3 mL) lunch & 15 at injection pen dinner cloNIDine HCl 0.2 mg Take 0.5 tablets 120 tablet 6 02/29/2016 Active tablet (0.1 mg total) by mouth at bedtime. cyclobenzaprine 10 mg Take 1 tablet (10 60 tablet 0 02/29/2016 Active tablet mg total) by mouth 3 times daily as needed. docusate 100 mg Take 1 capsule (100 60 capsule 0 02/29/2016 Active capsule mg total) by mouth 2 times daily. fluticasone 50 Use 2 Sprays into 02/29/2016 Active mcg/Actuation nasal both nostrils spray daily. lisinopril 20 mg Take 0.5 tablets 120 tablet 6 02/29/2016 Active tablet (10 mg total) by mouth daily. Replace Losartan. pantoprazole Take 1 tablet (40 60 tablet 3 02/29/2016 Active (PROTONIX) 40 mg EC mg total) by mouth tablet daily. Patient verified/ confirmed that she tolerates medication well. atorvastatin 40 mg Take 1 tablet (40 60 tablet 3 02/29/2016 Active tablet mg total) by mouth every evening. Replace Zocor. famotidine 40 mg Take 1 tablet (40 60 tablet 2 02/29/2016 Active tablet mg total) by mouth every evening. ibuprofen 800 mg Take 1 tablet (800 90 tablet 0 02/29/2016 Active tablet mg total) by mouth every 6 hours as needed. SUPPLY BD ULTRA-FINE Inject 100 Each 3 09/24/2016 Active NOLVIA 32 x 4 MM pen subcutaneously 4 needle times daily. polyethylene glycol Take 17 g by mouth Active 3350 17 gram packet daily as needed. amitriptyline 50 mg Take 50 mg by mouth Active tablet at bedtime. HYDROcodone-acetamino Take 1 tablet by Active phen 5-325 mg per mouth every 6 hours tablet as needed. albuterol-ipratropium Use 3 mL by Active 2.5-0.5 mg/3 mL inhalation every 4 inhalation solution hours as needed for Wheezing or Shortness of breath. insulin glargine Inject 50 Units Active (LanTUS SOLOSTAR) 100 subcutaneously 2 unit/mL (3 mL) times daily. injection pen Active Problems Problem Noted Date Personal history [...] Recent Encounters Date Type Specialty Providers Description 10/28/2016 Office Visit General Internal Kathryn Perera Subj: Upcoming Appt Alba Ramirez MD Reminder Ivette Eli MD Bowen, Elizabeth R, MD 10/21/2016 Telephone General Internal Kathryn Perera Chief Comp: Follow- up Alba Ramirez MD 10/10/2016 Telephone Pharmacy Nica Chavira, Chief Comp: [facility] Scheduling 10/07/2016 Telephone General Internal Jf Chief Comp: Advice Medicine Mariza Adams MD Only 10/03/2016 Office Visit General Internal Kathryn Perera Subj: Upcoming Appt Alba Ramirez MD Reminder 10/03/2016 Office Visit General Internal Default, Other Subj: Appointment Medicine Billg - Defo Scheduled 10/03/2016 Telephone Pharmacy Nica Chavira, Chief Comp: [facility] Scheduling 10/02/2016 Nurse Triage Med GI/Hepatology Tracey Hodges, Chief Comp: Post- op RN Follow-up Call 10/01/2016 Hospital Encounter Med GI/Hepatology Gil, Dx: Weight loss MD Snehal 09/30/2016 Telephone Pharmacy Nica Chavira, Chief Comp: [facility] Scheduling 09/25/2016 Telephone General Internal Kathryn Perera Chief Comp: Follow- up Medicine MD Ashley 09/24/2016 Office Visit General Internal Torsten Conte Subj: Appointment Medicine MD Shima Scheduled 09/24/2016 Hospital Encounter Radiology Lance Cosby, Dx: Weight loss 09/24/2016 Office Visit Pathology Kathryn Perera Dx: DM (diabetes MD Ashley mellitus), type 2 Lab Services, Irl with [...] Taken Blood Pressure 149/69 10/01/2016 9:41 AM COVER CREASER Pulse 73 09/24/2016 12:43 PM [employer]OVER [employer]ASER Temperature 36.3 C (97.3 F) 10/01/2016 8:47 AM COVER CREASER Respiratory Rate 16 10/01/2016 7:22 AM COVER CREASER Height 1.676 m (5' 5.98") 02/29/2016 8:50 AM CDT Weight 120.45 kg (265 lb 8.7 oz) 10/01/2016 7:15 AM [employer]OVER CREASER Body Mass Index 42.88 10/01/2016 7:15 AM COVER CREASER Oxygen Saturation 96% 10/01/2016 9:41 AM COVER CREASER Plan of Care Patient Goal Type Goal Result Component % HBA1C below 7.0 Lifestyle declined wishes Date Type Specialty Providers Description 12/05/2016 Appointment General Internal Sulema Restrepo MD [address] [place] [address] [phone] (Fax) Subj: Appointment Medicine Althea Raymundo MD [address] [place] [address] [phone] (Fax) Scheduled Health Maintenance Due Date Last [...] 3 Months ENDOSCOPY UPPER (10/04/2016 1:09 PM) Snehal Mesa MD 10/04/20161:09 PM ENDOSCOPY UPPER Upper GI [...] up with PCP. Chen Michaud MD Clinical [place] Division of Gastroenterology-Hepatology Department of Internal Medicine [facility] I have examined this chart produced by the scribe and find it to be accurate. Post Sedation Evaluation Blood pressure: 148/74 (178:17 AM) Pulse: 69 (:23 AM) 71 (178:23 AM) Temperature: 97 (:22 AM) Temp. Source: Tympanic (:22 AM) Respiratory rate: 11 (178:23 AM) SpO2: 100 (178:23 AM) Pain: None Nausea and Vomiting: Absence of nausea/vomiting (03/24/139:40 AM) Level of Consciousness: Alert Airway Patency: Full I have personally evaluated the patient prior to discharge. Snehal Cordero MD Addendum: Path Gastroesophageal junction, biopsy: Inflamed squamocolumnar mucosa consistent with reflux. Focal intestinal metaplasia. SURGICAL PATHOLOGY EXAM (10/01/2016 8:33 AM) Component Value Range Case Report Surgical Pathology Case: [id number] Authorizing Provider:Snehal Cordero, Collected: 10/01/2016 08:33 AM Ordering Location: [facility] Received: 10/01/2016 09:46 AM Diseases: [...] performed and supports the diagnosis. Performed by:Drew Lovett, DO, R3 Specimen Tissue - Esophagus BLOOD [...] Procedure Note Dave, Incoming Imaging Results - Tue Sep 24, 2016 3:12 PM COVER [employer]ASER Procedure: CHEST- PA & LATERAL Clinical Indication: [...] AT 830AM Normal 211 - 946 pg/mL [id number] - 210 pg/mL Deficient<150pg/mL Specimen Blood HEPATIC [...]
[2016-11-14 19:40] LABS: Anion Gap 11.7 mmol/L (6.8-13.8); BUN/Creatinine Ratio 19.2 (9.0-21.6); Bilirubin, Total 0.3 mg/dL (0.0-1.1); Ca. Corrected For Albumin 9.5 mg/dL (8.4-10.2); Carbon Dioxide 29.1 mmol/L (24-32.6); Potassium 3.8 mmol/L (3.4-4.6); Total Protein 7.1 gm/dL (6.2-8.2)
== END 2016-11-14 19:58 | disposition home or self-care (01) ==
LOC: ER 17:57
DX: E10.65 Type 1 diabetes mellitus with hyperglycemia (principal); I10 Essential (primary) hypertension; K21.9 Gastro-esophageal reflux disease without esophagitis; E03.9 Hypothyroidism, unspecified; F41.8 Other specified anxiety disorders; D64.9 Anemia, unspecified

== ENCOUNTER 2017-01-13 10:10 | Day surgery (SDC) | payer MEDICARE, OTHER ==
[~2017-01-13 10:10] MED LIST: RINGERS SOLUTION,LACTATED 1,000 ML IV PRN; ceFAZolin SODIUM 2 GM in DEXTROSE 5 % IN WATER 50 ML IV PRN; ceFAZolin SODIUM 2 GM in DEXTROSE 5 % IN WATER 50 ML IV SCH
--- OUTSIDE RECORDS SUMMARY | 2017-01-13 10:14 | XMS REPORT | Continuity of Care Document ---
:1960 Author Organization [facility] ([facility]) Address [address] [place] [address] Phone [phone] Care Team Providers Name Role Phone Althea Raymundo Primary Care Provider [phone] Source Comments This disclosure is being made pursuant to the Care Everywhere program, applicable federal and state laws, and may not contain all informaitonavailable regarding this patient.[facility] ([facility]) Active Allergies and Adverse Reactions Allergen [...] Recent Encounters Date Type Specialty Providers Description 12/05/2016 Office Visit General Internal Sulema Restrepo, Subj: Upcoming Appt Medicine Reminder Althea Raymundo MD 10/28/2016 Office Visit General Internal Kathryn Perera, Subj: Upcoming Appt Medicine Reminder vIette Eli MD Bowen, Elizabeth R, MD 10/21/2016 Telephone General Internal Kathryn Perera, Chief Comp: Follow-up Medicine Immunizations Name Dates Previously Given Next Due [...] Taken Blood Pressure 149/69 10/01/2016 9:41 AM [employer]ITY [employer]PLIANCE ENGINEER Pulse 73 09/24/2016 12:43 PM [employer] COM[employer]IANCE ENGINEER Temperature 36.3 C (97.3 F) 10/01/2016 8:47 AM SECURITY COMPLIANCE ENGINEER Respiratory Rate 16 10/01/2016 7:22 AM SEC[employer] COMPLIANCE ENGINEER Height 1.676 m (5' 5.98") 02/29/2016 8:50 AM CDT Weight 120.45 kg (265 lb 8.7 oz) 10/01/2016 7:15 AM [employer] COMPLIANCE ENGINEER Body Mass Index 42.88 10/01/2016 7:15 AM SEC[employer] COMPLIANCE ENGINEER Oxygen Saturation 96% 10/01/2016 9:41 AM SEC[employer]ITY COMPLIANCE ENGINEER Plan of Care Patient Goal Type Goal Result Component % HBA1C below 7.0 Lifestyle declined wishes Health Maintenance Due Date Last Done Comments [...] 05/27/2015, 03/19/2011 Results from Last 3 Months Not on file
[2017-01-13] MEDS ORDERED: RINGERS SOLUTION,LACTATED 1,000 ML IV ONE (11:25)
[2017-01-13] MEDS ORDERED: LIDOCAINE HCL 50 ML VIAL IJ ONE (12:45)
[2017-01-13] MEDS ORDERED: BUPIVACAINE HCL 50 ML VIAL IJ ONE ×2 (12:45)
[2017-01-13] MEDS ORDERED: DEXAMETHASONE SOD PHOSPHATE 4 MG/ML VIAL IJ ONE (13:12)
[2017-01-13 14:32] VITALS: BP 153/84
== END 2017-01-13 10:11 | disposition home or self-care (01) ==
LOC: AMB 10:10
PROVIDERS: ATTEND Student in an Organized Health Care Education/Training Program
PROC: 0YB Anatomical Regions, Lower Extremities, Excision (ICD-10-PCS; principal; 2017-01-13 11:10)
DX: D17.39 Benign lipomatous neoplasm of skin and subcutaneous tissue of other sites (principal); I10 Essential (primary) hypertension; E11.65 Type 2 diabetes mellitus with hyperglycemia; E03.9 Hypothyroidism, unspecified; E78.5 Hyperlipidemia, unspecified; F41.1 Generalized anxiety disorder; K21.9 Gastro-esophageal reflux disease without esophagitis; E66.01 Morbid (severe) obesity due to excess calories; Z68.41 Body mass index [BMI] 40.0-44.9, adult; G47.33 Obstructive sleep apnea (adult) (pediatric)

== ENCOUNTER 2017-01-31 06:36 | Day surgery (SDC) | payer MEDICARE, OTHER ==
[~2017-01-31 06:36] MED LIST changes: +ceFAZolin SODIUM 1 GM VIAL IV PRN; -ceFAZolin SODIUM 2 GM in DEXTROSE 5 % IN WATER 50 ML IV PRN; -ceFAZolin SODIUM 2 GM in DEXTROSE 5 % IN WATER 50 ML IV SCH
[2017-01-31] MEDS ORDERED: ceFAZolin SODIUM 1 GM VIAL IV ONE (08:00)
[2017-01-31] MEDS ORDERED: BUPIVACAINE HCL/EPINEPHRINE 50 ML VIAL IJ ONE (08:20)
[2017-01-31] MEDS ORDERED: RINGERS SOLUTION,LACTATED 1,000 ML IV ONE (08:30)
--- NOTE | 2017-01-31 09:55 | OR ---
Operative Report - Dictated Report Narrative: Date: 01/31/2017 Physician: Bharath Corrales M.D. Evaporator Operator Molasses: Juan Victor PA-C Preoperative diagnosis: Right Shoulder massive rotator cuff tear, acromioclavicular arthrosis with impingement, subacromial impingement, biceps tendinopathy Postoperative diagnosis: Right Shoulder massive rotator cuff tear, acromioclavicular arthrosis with impingement, subacromial impingement, biceps tendinopathy Procedure: Right shoulder arthroscopy with mini open massive rotator cuff repair , Luke procedure, subacromial decompression with acromioplasty, biceps tenotomy Anesthesia: General plus regional Complications: None Estimated blood loss: Minimal Specimens: Bone for disposal Retained implants: [employer] 4.5 mm peek helicoil anchor 1, 5.5 mm peek helicoil anchor 2, 4.5 mm footprint anchor 2 Drains: None Indications: Mrs. Lewis Is a 57 year-old female who has been followed in my clinic with complaints of shoulder pain consistent with a full-thickness rotator cuff tear. Physical exam and diagnostic imaging were consistent with his complaints and concern for full-thickness rotator cuff tear. Conservative measures have failed including, but not limited to, passage of time, activity modification, medications, physical therapy/home exercise program, or injections. The risks, benefits, and alternatives were discussed in clinic. The risks being , bleeding, infection, blood clots, nerve, tendon, ligament, blood vessel injury, persistent pain, arthrosis, stiffness, need for prolonged therapy, need for additional procedures, and persistent symptoms. Consent was obtained in the clinic. Procedure: After marking the correct extremity in the preoperative holding area, a timeout was performed in the operating room. IV antibiotics consisting of Ancef were administered prior to the procedure. A general followed by regional anesthetic was induced by the nurse squadron worker. This was in the supine position, then the patient was transitioned to a beachchair position with all bony prominences well-padded, head in neutral, the nonoperative arm well supported, and the legs padded with SCDs in place. The operative shoulder was then prepped and draped in a standard sterile fashion. Preoperatively the shoulder had full passive range of motion, and no gross instability. After marking out the bony landmarks , saline was infused into the joint through a posterior lateral portal site. A lazarus incision was made, and the blunt trocar and cannula was introduced into the shoulder joint. An accessory portal was placed in the rotator cuff interval using a spinal needle for guidance. Upon initial evaluation, the biceps tendon showed approximate 75% thickness tear as it inserted into the labrum. The middle glenohumeral ligament was unremarkable. Subscapularis tendon was unremarkable. The glenoid showed no significant arthrosis. The humeral head articular surface showed no significant arthrosis. The anterior labrum was frayed but intact. The superior labrum was frayed and but intact. The pouch was and unremarkable. The posterior labrum was unremarkable. The supraspinatus tendon was torn and retracted full-thickness from just behind the biceps to the posterior aspect of the infraspinatus. The infraspinatus tendon was torn as mentioned. Utilizing the anterior portal, the biceps was tenotomized and allowed to retract. A lateral accessory portal was then placed in the greater tuberosity and rotator cuff tendon were debrided down to stable margins. Attention was then turned to the subacromial space. Subacromial bursectomy was performed utilizing the prior portals. The coracoacromial ligament frayed but intact. The bursal side of the rotator cuff demonstrated full-thickness tears as identified intra-articularly. The acromial arch noted to have an anterior lateral spur. Utilizing lateral portal and electric cautery device was utilized in order to skeletonize the acromion. The anterior lateral aspect acromion arch was burred down to a smooth margin resecting approximately 3-4 mm of bone. This resulted in a flattened overall appearance of the acromion. Based on the arthroscopic findings, as well as exam and radiographic findings, it was elected to proceed with a mini open rotator cuff repair. A longitudinal incision centered over the previously identified rotator cuff tear was made just off the edge of the acromion. This was approximately 7 centimeters in length. The deltoid fascia was split sharply in line with its fibers, and blunt dissection was carried through the deltoid muscle. Any remaining subacromial bursal tissue was debrided in order to expose the underlying rotator cuff tear. The rotator cuff tear appeared to be U-shaped orientation. The tuberosity was debrided of its soft tissues producing a bleeding bed for the tendon to be secured to. 3 PEEK helicoil anchor was placed just off the articular surface of the humeral head. A series of horizontal mattress sutures were placed at the prepared edge of the rotator cuff. This allowed for a tension-free return of the tendon to the greater tuberosity. The sutures were then passed longitudinally into 2 4.5 mm PEEK footprint anchor. This was performed and a suture bridge technique. This gave good overall compression to the rotator cuff at the insertion site. The shoulders place a range of motion and had no lift off of the repair site as well as no crepitance or signs of impingement. Full passive range of motion was able to be obtained. Once it was felt that the rotator cuff was adequately repaired, the wounds were thoroughly irrigated. 0 Vicryl was utilized in order to repair the deltoid fascia. 3-0 Vicryl was placed in the subcutaneous tissue. The rotator cuff incision as well as the portal sites were closed with interrupted nylon. Attention was then turned to the distal clavicle. A longitudinal incision was made over the acromioclavicular joint. This was sharply dissected down to the chromic clavicular capsule. Cautery was utilized for hemostasis. A longitudinal capsulotomy was made and elevated off the anterior posterior aspects of the distal clavicle. There is notable hypertrophic bone and loss of joint space between the acromion and clavicle. Protecting the surrounding soft tissues, an oscillating saw was utilized in order to resect approximately 7-10 mm of bone from the distal clavicle. The remaining clavicle was stable after removing this. The shoulders place a range of motion and showed no remaining impingement between the acromion and the clavicle. Wounds were then thoroughly irrigated. The capsule was closed with interrupted 0 Vicryl to subcutaneous tissue with 3-0 Vicryl. Skin was closed with 4-0 nylon. Dressings consisting of Xeroform, 4 x 4, ABD, soft roll, and tape were applied. All sponge, needle, blade, and instrument counts were correct prior to closing the wounds. The patient was awoken and transferred to the postanesthesia care unit in stable condition.
[2017-01-31 13:47] VITALS: BP 123/64
== END 2017-01-31 06:37 | disposition home or self-care (01) ==
LOC: AMB 06:36
PROVIDERS: ATTEND Orthopaedic Surgery
PROC: 0LQ10ZZ Repair Right Shoulder Tendon, Open Approach (ICD-10-PCS; 2017-01-31)
PROC: 0PB90ZZ Excision of Right Clavicle, Open Approach (ICD-10-PCS; 2017-01-31)
PROC: 0RNJ4ZZ Release Right Shoulder Joint, Percutaneous Endoscopic Approach (ICD-10-PCS; 2017-01-31)
PROC: 0RBJ4ZZ Excision of Right Shoulder Joint, Percutaneous Endoscopic Approach (ICD-10-PCS; principal; 2017-01-31 08:20)
DX: M75.101 Unspecified rotator cuff tear or rupture of right shoulder, not specified as traumatic (principal); M19.011 Primary osteoarthritis, right shoulder; M75.41 Impingement syndrome of right shoulder; M75.21 Bicipital tendinitis, right shoulder; I10 Essential (primary) hypertension; E78.5 Hyperlipidemia, unspecified; E03.9 Hypothyroidism, unspecified; K21.9 Gastro-esophageal reflux disease without esophagitis; E11.65 Type 2 diabetes mellitus with hyperglycemia; J45.40 Moderate persistent asthma, uncomplicated; G47.33 Obstructive sleep apnea (adult) (pediatric); G47.00 Insomnia, unspecified; F41.1 Generalized anxiety disorder; F32.9 Major depressive disorder, single episode, unspecified; E66.01 Morbid (severe) obesity due to excess calories; Z68.41 Body mass index [BMI] 40.0-44.9, adult

== ENCOUNTER 2017-03-21 08:39 | Emergency (ER) | payer MEDICARE, OTHER ==
[2017-03-21] MEDS ORDERED: ALBUTEROL SULFATE/IPRATROPIUM 3 ML NEBU IH ONE ×2 (08:55→08:58)
[2017-03-21] MEDS ORDERED: predniSONE 20 MG TABLET PO ONE (08:55)
[2017-03-21] MEDS ORDERED: predniSONE 20 MG TABLET ONE (08:58)
--- NOTE | 2017-03-21 09:05 | ERNOTE ---
Date of Service: 03/21/17 Time Seen by Provider: 03/21/17 08:51 Stated Complaint: Cough Presenting Symptoms:: cough, sore throat Source: patient Exam Limitations: no limitations Immunizations: IMMUNIZATION HX Immunizations Up to Date Yes History of Influenza Vaccine Yes Hx Pneumococcal Vaccination Yes Allergies/Adverse Reactions: Allergies bupropion HCl [From Wellbutrin] Allergy (Mild, Verified 03/21/17 08:50) Hives phenobarbital Allergy (Mild, Verified 03/21/17 08:50) Hives fluconazole [From Diflucan] Adverse Reaction (Mild, Verified 03/21/17 08:50) REDNESS, ITCH Sulfa (Sulfonamide Antibiotics) Adverse Reaction (Mild, Verified 03/21/17 08:50) RED BLOTCHES Home Medications: HOME MEDICATIONS Atorvastatin Calcium [Lipitor] 40 mg PO HS 10/29/14 [Last Taken Unknown] Aspirin [Aspirin Enteric Coated] 81 mg PO DAILY 05/16/15 [Last Taken Unknown] Docusate Sodium [Colace] 100 mg PO BID 05/16/15 [Last Taken Unknown] Levothyroxine Sodium [Synthroid] 50 mcg PO DAILY 05/16/15 [Last Taken Unknown] Blood Sugar Diagnostic, Drum [Accu-Chek Compact Plus Strips] 1 each ACHS # 100 strip 05/29/15 [Last Taken Unknown] Fluticasone/Salmeterol [Advair 250-50 Diskus] 1 puff IH BID #1 inhaler 05/29/15 [Last Taken Unknown] Ammonium Lactate [Lac-Hydrin] 1 appl TP BID 12/11/15 [Last Taken Unknown] HYDROcodone/ACETAMINOPHEN [[place] 5-325] 1 each PO Q8H PRN 12/11/15 [Last Taken Unknown] Meclizine HCl [Antivert] 25 mg PO TID PRN 12/11/15 [Last Taken Unknown] Polyethylene Glycol 3350 [Miralax] 17 gm PO DAILY 12/11/15 [Last Taken Unknown] Insulin Glargine,Hum.rec.anlog [Lantus] 50 units SC BID 03/03/16 [Last Taken Unknown] Albuterol Sulfate [Proventil Hfa] 1 - 2 puff IH Q4H PRN 01/10/17 [Last Taken Unknown] Albuterol Sulfate/Ipratropium [Duoneb 2.5-0.5MG/3ML Soln] 3 ml IH Q4H PRN [Last Taken Unknown] Amitriptyline HCl [Elavil] 25 mg PO HS 01/10/17 [Last Taken Unknown] Cetirizine HCl [Zyrtec] 10 mg PO HS 01/10/17 [Last Taken Unknown] Cholecalciferol (Vitamin D3) [Vitamin D3] 5,000 unit PO DAILY 01/10/17 [Last Taken Unknown] Duloxetine HCl [Cymbalta] 30 mg PO DAILY 01/10/17 [Last Taken Unknown] Escitalopram Oxalate [Lexapro] 20 mg PO DAILY 01/10/17 [Last Taken Unknown] Exenatide Microspheres [Bydureon Pen] 2 mg SQ Q7D 01/10/17 [Last Taken Unknown] Fluticasone Propionate [Flonase Allergy Relief] 1 spray NS DAILY 01/10/17 [Last Taken Unknown] Insulin Lispro [Humalog] 25 unit SQ AC 01/10/17 [Last Taken Unknown] LORazepam [Ativan] 0.5 mg PO TID PRN 01/10/17 [Last Taken Unknown] Lisinopril [Zestril] 10 mg PO HS 01/10/17 [Last Taken Unknown] Omeprazole 40 mg PO DAILY 01/10/17 [Last Taken Unknown] Topiramate [Topamax] 100 mg PO HS 01/10/17 [Last Taken Unknown] metFORMIN HCL [Metformin HCl ER] 1,000 mg PO BID 01/10/17 [Last Taken Unknown] HYDROmorphone HCL [Dilaudid] 2 mg PO Q4H PRN #90 tablet 01/31/17 [Last Taken Unknown] Doxycycline Hyclate [Vibratab] 100 mg PO BID #20 tab 03/21/17 [Last Taken Unknown] predniSONE [Prednisone] 50 mg PO DAILY #4 tablet 03/21/17 [Last Taken Unknown] - History of Present Ilness Narrative: Patient presents to the ED for cough. She relates that she has been sick since yesterday with cough, productive of yellow sputum, nasal congestion, feeling feverish. She thinks she picked up something in the doctors office Friday when she went in for bug bites. Her throat is sore. Mild chest discomfort since yesterday with cough. Feels SOB with the coughing fits. No vomiting or abdominal pain. Has not seen anyone else for this. Timing: constant Severity: moderate Frequency/Possible Cause: Reports: other - same with bronchitis/pneumonia Modifying Factors - Improves: Reports: nothing Modifying Factors - Worsens: Reports: nothing Associated Symptoms: Reports: chest pain/soreness, cough, shortness of breath, nasal congestion, sore throat, fever/chills. Denies: earache Prior Treatment: Reports: recently seen Review of Systems - Review of Systems Constitutional: Present: other - felt feverish yesterday when this began EYE: Present: no symptoms reported ENT: Present: See HPI Respiratory: Present: See HPI, cough Cardiology: Present: See HPI Gastrointestinal/Abdominal: Absent: abdominal pain Genitourinary: Absent: dysuria Skin: Present: other - recent bug bites Neurological: Absent: weakness - Patient's Past Medical History Patient History - Medical: Anxiety, Arthritis, Diabetes Type 2 Insulin Dependent , Depression, GERD, Hypothyroidism, Migraines, Obesity, Other Patient History - Cardiac/Respiratory: Asthma, COPD, Hypertension, Hyperlipidemia, CPAP/BiPAP Home Use, Sleep Apnea Patient History - Cancer: No Hx of Cancer Patient History - Surgical Procedures: Appendectomy, Cholecystectomy, Colonoscopy, Other, Hernia Repair Patient History - Other: None - Family History Mother Family History - Medical: , No pertinent hx Family History - Cardiac/Respiratory: CHF, Hypertension, Hyperlipidemia, Myocardial Infarction Family History - Cancer: No pertinent family hx Father Family History - Medical: , No pertinent hx Family History - Cardiac/Respiratory: COPD Family History - Cancer: Lung Brother Family History - Medical: , No pertinent hx Family History - Cardiac/Respiratory: Other Family History - Cancer: No pertinent family hx - Social History Living Situations: home Abuse History: No History of abuse Psych History: Hx of Anxiety, Hx of Depression, Current tx/ever been on anti- depressants or anti-anxiety meds Alcohol Use: none Drug Use: none - Immunizations Immunizations Up to Date: Yes Hx Pneumococcal Vaccination: Yes History of Influenza Vaccine: Yes Physical Exam - Physical Exam General Appearance: Present: alert, no apparent distress, other - frequent cough. Speak sin full sentences, no active distresas Head Exam: Present: normal inspection, no evidence of injury Eye Exam: Normal inspection: bilateral, PERRL: bilateral Ears, Nose, Throat: Present: other - Nasal congestion. Mild posterior oropharyngeal erythema. No REGIONAL REHABILITATION DIRECTOR, RPA or epiglottitis. Neck: Present: normal inspection Respiratory: Present: no respiratory distress, no accessory muscle use, chest tenderness, other - Faint scattered wheezes with cough. No distress. Anterior chest wall tendenress completely reproduces the soreness she has been having since yesterday with the cough Cardiovascular/Chest: Present: regular rate, rhythm, normal peripheral pulses Gastrointestinal/Abdominal: Present: normal bowel sounds, nontender, soft Back Exam: Present: normal range of motion Extremity Exam: Present: normal inspection, other - no claf tenderness or findings of DVT Neurological Exam: Present: alert, normal mood/affect, no motor/sensory deficits , automation qa analyst II-XII nml as tested. Absent: motor weakness Skin Exam: Present: normal color, warm/dry ED Progress - Results and Orders Patient's Lab Results:: I have reviewed the patient's lab results. - Vital Signs Patient's Vital Signs:: I have reviewed the patient's vital signs. Vital Signs: Vital Signs 03/21/17 03/21/17 08:45 08:49 Temperature 36.0 C L Pulse Rate 68 68 Respiratory 22 H Rate Blood Pressure 146/82 O2 Sat by Pulse 98 Oximetry - EKG EKG: NSR EKG read: Interp. by me EKG Comments: NSR rate 60. Non-specific, no STEMI - X-Ray X-Ray #1 X-Ray: chest Interpretation: Interp. by me X-ray Comments: I reviewed official CXR report - Progress/Reassessment Chief Complaint: Upper Respiratory Symptoms Progress Note-Subjective: 03/21/17 09:03 Nothing at this time to suggest ACS, neg trop with 24 hours of atypical Sx, no indication for repeat troponin. Nothing to suggest PE or aortic dissection. Nothing to suggest sepsis, hypoxia or toxicity. I feels she can be discarged with medical therapy and close f/u. She is agreeable. non-toxic, no distress, no suggestion of sepsis or other clear life threat. i discussed warning signs and reasons to return as well as the need for close f/u. CLinically nothing would suggest CHF, this is all bronchitis clinically. She has normal O2 sats and NSR with normal respiratory rate. 03/21/17 10:04 Departure - Departure Clinical Impression: Cough, Bronchitis Disposition: Home self-care Condition: Stable Instructions: Acute Bronchitis, [id number] Additional Instructions: Rest. Fluids. Inhalers. Take medications as directed. Follow-up with your primary doctor Friday for a re-check at 11:00am. Return for trouble breathing, fever or if your condition worsens or changes in any way. Referrals: Gloria Alarcon MD [Primary Care Provider] - Prescriptions: Doxycycline Hyclate [Vibratab] 100 mg PO BID #20 tab predniSONE [Prednisone] 50 mg PO DAILY #4 tablet
[2017-03-21 09:12] LABS: Hematocrit 39.2 % (37.0-47.0); Hemoglobin 12.6 gm/dL (12.5-16.0); Mean Cell Volume 83.8 fl (78-100); Mean Corpuscular Hemoglobin 26.9 pg (27-31); Mean Corpuscular Hgb Conc 32.1 g/dl (32-36); Mean Platelet Volume 10.6 fl (6.0-9.5); Neutrophil # 6.3 K/mm3 (1.3-6.0); Neutrophil % 66.8 % (42-75.0); Platelet Count 378 K/mm3 (150-450); Red Blood Count 4.68 M/mm3 (4.2-5.4); Red Cell Distribution Width 13.6 % (11.5-14.0); White Blood Count 9.5 K/mm3 (4.0-10.5)
[2017-03-21 09:33] LABS: ALT 23 U/L (19-67); AST 18 U/L (0-48); Albumin * 3.2 gm/dl (3.4-5.0); Alkaline Phosphatase * 149 U/L (50-170); Anion Gap 15.8 mmol/L (6.8-13.8); BUN/Creatinine Ratio 13.4 (9.0-21.6); Bilirubin, Total 0.9 mg/dL (0.0-1.1); Blood Urea Nitrogen 11 mg/dL (3-23); Ca. Corrected For Albumin 9.5 mg/dL (8.4-10.2); Calcium * 9.2 mg/dL (7.9-10.9); Carbon Dioxide 24.2 mmol/L (24-32.6); Chloride 102 mmol/L (97-106); Glucose * 372 mg/dL (70-110); Sodium 138 mmol/L (132-142); Total Protein 6.9 gm/dL (6.2-8.2); Troponin I Less than 0.017 ng/ml (0.00-0.10)
[2017-03-21 10:02] VITALS: BP 148/63
== END 2017-03-21 10:12 | disposition home or self-care (01) ==
LOC: ER 08:39
DX: R05 Cough (principal); J40 Bronchitis, not specified as acute or chronic; F41.8 Other specified anxiety disorders; E11.9 Type 2 diabetes mellitus without complications; Z79.4 Long term (current) use of insulin; K21.9 Gastro-esophageal reflux disease without esophagitis; E03.9 Hypothyroidism, unspecified; J44.9 Chronic obstructive pulmonary disease, unspecified; I10 Essential (primary) hypertension; E78.5 Hyperlipidemia, unspecified

== ENCOUNTER 2017-03-29 21:49 | Emergency (ER) | payer MEDICARE, OTHER ==
--- NOTE | 2017-03-29 22:02 | ERNOTE ---
Date of Service: 03/29/17 Time Seen by Provider: 03/29/17 21:58 Stated Complaint: WHEEZY COUGHING Presenting Symptoms:: cough Source: patient Immunizations: IMMUNIZATION HX Immunizations Up to Date Yes History of Influenza Vaccine Yes Hx Pneumococcal Vaccination Yes Allergies/Adverse Reactions: Allergies bupropion HCl [From Wellbutrin] Allergy (Mild, Verified 03/21/17 08:50) Hives phenobarbital Allergy (Mild, Verified 03/21/17 08:50) Hives fluconazole [From Diflucan] Adverse Reaction (Mild, Verified 03/21/17 08:50) REDNESS, ITCH Sulfa (Sulfonamide Antibiotics) Adverse Reaction (Mild, Verified 03/21/17 08:50) RED BLOTCHES Home Medications: HOME MEDICATIONS Atorvastatin Calcium [Lipitor] 40 mg PO HS 10/29/14 [Last Taken Unknown] Aspirin [Aspirin Enteric Coated] 81 mg PO DAILY 05/16/15 [Last Taken Unknown] Docusate Sodium [Colace] 100 mg PO BID 05/16/15 [Last Taken Unknown] Levothyroxine Sodium [Synthroid] 50 mcg PO DAILY 05/16/15 [Last Taken Unknown] Blood Sugar Diagnostic, Drum [Accu-Chek Compact Plus Strips] 1 each MC ACHS # 100 strip 05/29/15 [Last Taken Unknown] Fluticasone/Salmeterol [Advair 250-50 Diskus] 1 puff IH BID #1 inhaler 05/29/15 [Last Taken Unknown] Ammonium Lactate [Lac-Hydrin] 1 appl TP BID 12/11/15 [Last Taken Unknown] HYDROcodone/ACETAMINOPHEN [[place] 5-325] 1 each PO Q8H PRN 12/11/15 [Last Taken Unknown] Meclizine HCl [Antivert] 25 mg PO TID PRN 12/11/15 [Last Taken Unknown] Polyethylene Glycol 3350 [Miralax] 17 gm PO DAILY 12/11/15 [Last Taken Unknown] Insulin Glargine,Hum.rec.anlog [Lantus] 50 units SC BID 03/03/16 [Last Taken Unknown] Albuterol Sulfate [Proventil Hfa] 1 - 2 puff IH Q4H PRN 01/10/17 [Last Taken Unknown] Albuterol Sulfate/Ipratropium [Duoneb 2.5-0.5MG/3ML Soln] 3 ml IH Q4H PRN [Last Taken Unknown] Amitriptyline HCl [Elavil] 25 mg PO HS 01/10/17 [Last Taken Unknown] Cetirizine HCl [Zyrtec] 10 mg PO HS 01/10/17 [Last Taken Unknown] Cholecalciferol (Vitamin D3) [Vitamin D3] 5,000 unit PO DAILY 01/10/17 [Last Taken Unknown] Duloxetine HCl [Cymbalta] 60 mg PO DAILY 01/10/17 [Last Taken Unknown] Escitalopram Oxalate [Lexapro] 20 mg PO DAILY 01/10/17 [Last Taken Unknown] Exenatide Microspheres [Bydureon Pen] 2 mg SQ Q7D 01/10/17 [Last Taken Unknown] Fluticasone Propionate [Flonase Allergy Relief] 1 spray NS DAILY 01/10/17 [Last Taken Unknown] Insulin Lispro [Humalog] 25 unit SQ AC 01/10/17 [Last Taken Unknown] LORazepam [Ativan] 0.5 mg PO TID PRN 01/10/17 [Last Taken Unknown] Lisinopril [Zestril] 10 mg PO HS 01/10/17 [Last Taken Unknown] Omeprazole 40 mg PO DAILY 01/10/17 [Last Taken Unknown] Topiramate [Topamax] 100 mg PO HS 01/10/17 [Last Taken Unknown] metFORMIN HCL [Metformin HCl ER] 1,000 mg PO BID 01/10/17 [Last Taken Unknown] Doxycycline Hyclate [Vibratab] 100 mg PO BID #20 tab 03/21/17 [Last Taken Unknown] - History of Present Ilness Narrative: This is a 57-year-old female with a history of COPD who had an episode of COPD which progressed into pneumonia last year. The patient says that she's been having chest tightness, cough, sputum production which is yellowish nunez. She says the symptoms have been going on for 10 days despite being on an unknown antibiotic from her family doctor. The patient actually went back to see her family doctor on Friday and was told to continue treatment. The patient has not been on a steroid. She has been using breathing treatments at home. The patient denies overt chest pain although she complains of an uncomfortable tightness across her entire chest TIME. She does have dyspnea on exertion denies paroxysmal nocturnal dyspnea. The patient denies significant swelling in her legs. She denies history of CHF. Next The patient does have a history of diabetes, high blood pressure high cholesterol and remote history of smoking. No family history of early cardiac disease. The patient says she is nauseated and generally weak but denies vomiting diarrhea for throat runny nose. She does admit that she's been having some urinary symptoms in the form of pain when she urinates. She thinks this might be related to the antibiotic she is been on. She says she frequently gets yeast infections. She has not noted any vaginal yeast infection discharge. Review of Systems - Review of Systems Constitutional: Present: recent illness, weakness, fatigue, malaise EYE: Present: no symptoms reported ENT: Present: no symptoms reported Respiratory: Present: shortness of breath, cough Cardiology: Present: no symptoms reported Gastrointestinal/Abdominal: Present: nausea Genitourinary: Present: no symptoms reported Musculoskeletal: Present: no symptoms reported Skin: Present: no symptoms reported Neurological: Present: no symptoms reported Endocrine: Present: no symptoms reported Hematologic/Lymphatic: Present: no symptoms reported Psych: Present: no symptoms reported - Patient's Past Medical History Patient History - Medical: Anxiety, Arthritis, Diabetes Type 2 Insulin Dependent , Depression, GERD, Hypothyroidism, Migraines, Obesity, Other Patient History - Cardiac/Respiratory: Asthma, COPD, Hypertension, Hyperlipidemia, CPAP/BiPAP Home Use, Sleep Apnea Patient History - Cancer: No Hx of Cancer Patient History - Surgical Procedures: Appendectomy, Cholecystectomy, Colonoscopy, Other, Hernia Repair Patient History - Other: None - Family History Mother Family History - Medical: , No pertinent hx Family History - Cardiac/Respiratory: CHF, Hypertension, Hyperlipidemia, Myocardial Infarction Family History - Cancer: No pertinent family hx Father Family History - Medical: , No pertinent hx Family History - Cardiac/Respiratory: COPD Family History - Cancer: Lung Brother Family History - Medical: , No pertinent hx Family History - Cardiac/Respiratory: Other Family History - Cancer: No pertinent family hx - Social History Living Situations: home Abuse History: No History of abuse Psych History: Hx of Anxiety, Hx of Depression, Current tx/ever been on anti- depressants or anti-anxiety meds Alcohol Use: none Drug Use: none - Immunizations Immunizations Up to Date: Yes Hx Pneumococcal Vaccination: Yes History of Influenza Vaccine: Yes Physical Exam - Physical Exam General Appearance: Present: other - patient is mildly upset. She became tearful while discussing this with me. She says "I never seem to get any better " Head Exam: Present: normal inspection, no evidence of injury Eye Exam: Normal inspection: bilateral, PERRL: bilateral, EOMI: bilateral Ears, Nose, Throat: Present: normal ENT inspection, normal pharynx Neck: Present: normal inspection, nontender Respiratory: Present: no respiratory distress, normal breath sounds, no accessory muscle use, chest nontender, lungs clear Cardiovascular/Chest: Present: regular rate, rhythm, no murmur, normal peripheral pulses Gastrointestinal/Abdominal: Present: normal bowel sounds, nontender, nondistended, soft, no organomegaly Back Exam: Present: normal inspection, normal range of motion, no CVA tenderness , no vertebral tenderness Extremity Exam: Present: normal inspection, non-tender Neurological Exam: Present: alert, oriented, normal mood/affect, no motor/ sensory deficits Skin Exam: Present: normal color, warm/dry Lymphatic Exam: Present: no adenopathy ED Progress - Results and Orders Patient's Lab Results:: I have reviewed the patient's lab results. - Vital Signs Patient's Vital Signs:: I have reviewed the patient's vital signs. - EKG EKG: other - patient has sinus tach with a ventricular rate of 105. There is no S1 every 3 T3. Normal axis normal intervals no ST segment deviation no acute ischemic changes - CT/Ultrasound CT/Ultrasound Narrative: CT scan is suboptimal for diagnosis of distal pulmonary embolism. There are no large segmental pulmonary emboli or filling defects. No lung parenchymal disease. Plan - Plan Plan: The patient has a blood sugar of 541 with an anion gap. The patient admits she has been on prednisone recently. She does not have ketones. I will give her saline. Her d-dimer was very mildly elevated. Therefore I will obtain a CT of the chest. This will also help elucidate if there is a pneumonia which I cannot see. The patient says that she feels better. As I have talked to her she now says that her biggest concern is the dizziness. She says 5-6 times a day when she stands up she gets lightheaded. Interestingly she has been on prednisone recently and has significantly elevated blood sugars. She says that she has been urinating nonstop. I suspect that she is mildly dehydrated and having orthostatic hypotension leading to her dizziness. Therefore I'm giving her 2 L of saline here. Her initial resting heart rate was 117. It is down to 101. Once it is less than 90 I will let her go home. I'm not going to continue steroids as this is messing with her blood sugar and she has already been on a course. I'm not to give her any antibiotics as she is already on antibiotics. I will give her Diflucan for vaginal candidiasis. Discussed with the patient that the emergency department has not identified any potentially life-threatening or serious causes of dizziness in her. She has meclizine at home which she will continue to try to use. I suspect that she will be much better if we can get her sugar under control and get her adequately hydrated. She will follow-up with her family doctor to get further testing if needed Departure - Departure Clinical Impression: Dizziness Disposition: Home self-care Condition: Stable Instructions: Vertigo, [id number], Hypotension, [id number] Additional Instructions: As we discussed, I see nothing abnormal on your tests or studies. He did have a very elevated blood sugar, which is likely from her steroid use. The steroids have almost certainly caused blood sugar to go up which has caused to you to lose blood sugar in your urine. Testicles fluid with it. The result is that he get dehydrated. He said he been urinating excessively. I suspect that her dizziness upon standing is due to dehydration from this glucose in your urine. Now the ear off of the steroids, your blood sugar should return to normal. It is important to keep adequately hydrated. Use care when standing. Do not stand up and try to walk right away. Give yourself 30 seconds to make sure you don't get dizzy. Next Y Sutton family doctor and set up follow-up appointment Return to the ER for new or worrisome symptoms Referrals: Gloria Alarcon MD [Primary Care Provider] -
[2017-03-29] MEDS ORDERED: ALBUTEROL SULFATE/IPRATROPIUM 3 ML NEBU IH ONE (22:10)
[2017-03-29] MEDS: ALBUTEROL SULFATE/IPRATROPIUM 3 ML NEBU IH SCH ×3 (22:13→22:55)
[2017-03-29 22:21] LABS: Hematocrit 41.7 % (37.0-47.0); Hemoglobin 13.8 gm/dL (12.5-16.0); Mean Corpuscular Hemoglobin 26.8 pg (27-31); Mean Corpuscular Hgb Conc 33.1 g/dl (32-36); Mean Platelet Volume 11.2 fl (6.0-9.5); Platelet Count 375 K/mm3 (150-450); Red Blood Count 5.15 M/mm3 (4.2-5.4); Red Cell Distribution Width 13.5 % (11.5-14.0); White Blood Count 13.9 K/mm3 (4.0-10.5)
[2017-03-29 22:26] LABS: Total Cells Counted 100
[2017-03-29 22:35] LABS: Atypical (Reactive) Lymph 1 % (0-2); Eosinophil 1 % (0-3); Hypochromia 1+; Lymphocyte 37 % (20-51); Monocyte 6 % (0-9); Neutrophil 55 % (42-75); Neutrophil # 7.6 K/mm3 (1.3-6.0); Platelet Estimate Normal (NORMAL)
[2017-03-29 22:39] LABS: ALT 27 U/L (19-67); AST 15 U/L (0-48); Albumin * 3.7 gm/dl (3.4-5.0); Alkaline Phosphatase * 189 U/L (50-170); Anion Gap 18.2 mmol/L (6.8-13.8); BUN/Creatinine Ratio 16.9 (9.0-21.6); Bilirubin, Total 0.8 mg/dL (0.0-1.1); Blood Urea Nitrogen 22 mg/dL (3-23); Ca. Corrected For Albumin 9.4 mg/dL (8.4-10.2); Calcium * 9.5 mg/dL (7.9-10.9); Carbon Dioxide 23.3 mmol/L (24-32.6); Chloride 92 mmol/L (97-106); Potassium 4.5 mmol/L (3.4-4.6); Sodium 129 mmol/L (132-142); Total Protein 7.5 gm/dL (6.2-8.2); Troponin I Less than 0.017 ng/ml (0.00-0.10)
[2017-03-29 22:42] LABS: Glucose * 541 mg/dL (70-110)
[2017-03-29 22:47] LABS: Urine Bilirubin Negative (NEGATIVE); Urine Blood Negative /ul (NEGATIVE); Urine Ketone 15 mg/dL (NEGATIVE); Urine Nitrite Negative (NEGATIVE); Urine Protein Negative (NEGATIVE); Urine Specific Gravity <=1.005 SP.GR. (1.005-1.010); Urine Urobilinogen Normal (NORMAL)
[2017-03-29 22:59] LABS: Urine Appearance Clear; Urine Bacteria 1+; Urine Color Pale Yellow; Urine RBC None Seen /hpf (0-5); Urine WBC None Seen /hpf (0-5)
[2017-03-29 23:00] LABS: Urine Yeast Few - 1+
[2017-03-29] MEDS ORDERED: NORMAL SALINE 1,000 ML IV PRN (23:15)
[2017-03-30 00:23] LABS: Hemoglobin A1C 11.7 % (4.00-6.0); Microalbumin 3 mcg/L; Microalbumin/Creatinine Ratio 7 mcg/mgCR (0-30); Urine Creatinine 45 mg/dL (60-200)
[2017-03-30] MEDS ORDERED: NORMAL SALINE 1,000 ML IV ONE (00:25)
[2017-03-30] MEDS ORDERED: FLUCONAZOLE 100 MG TABLET PO ONE (00:27)
[2017-03-30 00:34] LABS: Chol/HDL Risk Ratio 4.1 mg/dL (3.3-4.4); T4 Free * 1.44 ng/dL (0.76-1.46); TSH * 2.989 uIU/mL (0.358-3.74)
[2017-03-30] MEDS ORDERED: FLUCONAZOLE 100 MG TABLET ONE (00:37)
[2017-03-30 01:52] VITALS: BP 167/70
== END 2017-03-30 02:00 | disposition home or self-care (01) ==
LOC: ER 21:49
DX: R42 Dizziness and giddiness (principal); E11.9 Type 2 diabetes mellitus without complications; K21.9 Gastro-esophageal reflux disease without esophagitis; I10 Essential (primary) hypertension; F41.8 Other specified anxiety disorders; E03.9 Hypothyroidism, unspecified; E78.5 Hyperlipidemia, unspecified; J45.909 Unspecified asthma, uncomplicated

== ENCOUNTER 2017-04-15 14:17 | Emergency (ER) | payer MEDICARE, OTHER ==
[2017-04-15 14:38] VITALS: BP 144/84
--- NOTE | 2017-04-15 15:02 | ERNOTE ---
Upper Extremity HPI - General Extremities Pain Location: thumb: right Time Seen by Provider: 04/15/17 14:41 Source: patient Exam Limitations: no limitations - Immun/Allergies/Home Medications Immunizations: IMMUNIZATION HX Immunizations Up to Date Yes History of Influenza Vaccine Yes Hx Pneumococcal Vaccination Yes Allergies/Adverse Reactions: Allergies Allergy/AdvReac Type Severity Reaction Status Date / Time bupropion HCl Allergy Mild Hives Verified 03/21/17 08:50 [From Wellbutrin] phenobarbital Allergy Mild Hives Verified 03/21/17 08:50 fluconazole [From Diflucan] AdvReac Mild REDNESS, Verified 03/21/17 08:50 ITCH Sulfa (Sulfonamide AdvReac Mild RED Verified 03/21/17 08:50 Antibiotics) BLOTCHES Home Medications: HOME MEDICATIONS Atorvastatin Calcium [Lipitor] 40 mg PO HS 10/29/14 [Last Taken Unknown] Aspirin [Aspirin Enteric Coated] 81 mg PO DAILY 05/16/15 [Last Taken Unknown] Docusate Sodium [Colace] 100 mg PO BID 05/16/15 [Last Taken Unknown] Levothyroxine Sodium [Synthroid] 50 mcg PO DAILY 05/16/15 [Last Taken Unknown] Blood Sugar Diagnostic, Drum [Accu-Chek Compact Plus Strips] 1 each ACHS # 100 strip 05/29/15 [Last Taken Unknown] Fluticasone/Salmeterol [Advair 250-50 Diskus] 1 puff IH BID #1 inhaler 05/29/15 [Last Taken Unknown] Ammonium Lactate [Lac-Hydrin] 1 appl TP BID 12/11/15 [Last Taken Unknown] HYDROcodone/ACETAMINOPHEN [[place] 5-325] 1 each PO Q8H PRN 12/11/15 [Last Taken Unknown] Meclizine HCl [Antivert] 25 mg PO TID PRN 12/11/15 [Last Taken Unknown] Polyethylene Glycol 3350 [Miralax] 17 gm PO DAILY 12/11/15 [Last Taken Unknown] Insulin Glargine,Hum.rec.anlog [Lantus] 50 units SC BID 03/03/16 [Last Taken Unknown] Albuterol Sulfate [Proventil Hfa] 1 - 2 puff IH Q4H PRN 01/10/17 [Last Taken Unknown] Albuterol Sulfate/Ipratropium [Duoneb 2.5-0.5MG/3ML Soln] 3 ml IH Q4H PRN [Last Taken Unknown] Amitriptyline HCl [Elavil] 25 mg PO HS 01/10/17 [Last Taken Unknown] Cetirizine HCl [Zyrtec] 10 mg PO HS 01/10/17 [Last Taken Unknown] Cholecalciferol (Vitamin D3) [Vitamin D3] 5,000 unit PO DAILY 01/10/17 [Last Taken Unknown] Duloxetine HCl [Cymbalta] 60 mg PO DAILY 01/10/17 [Last Taken Unknown] Escitalopram Oxalate [Lexapro] 20 mg PO DAILY 01/10/17 [Last Taken Unknown] Exenatide Microspheres [Bydureon Pen] 2 mg SQ Q7D 01/10/17 [Last Taken Unknown] Fluticasone Propionate [Flonase Allergy Relief] 1 spray NS DAILY 01/10/17 [Last Taken Unknown] Insulin Lispro [Humalog] 25 unit SQ AC 01/10/17 [Last Taken Unknown] LORazepam [Ativan] 0.5 mg PO TID PRN 01/10/17 [Last Taken Unknown] Lisinopril [Zestril] 10 mg PO HS 01/10/17 [Last Taken Unknown] Omeprazole 40 mg PO DAILY 01/10/17 [Last Taken Unknown] Topiramate [Topamax] 100 mg PO HS 01/10/17 [Last Taken Unknown] metFORMIN HCL [Metformin HCl ER] 1,000 mg PO BID 01/10/17 [Last Taken Unknown] Doxycycline Hyclate [Vibratab] 100 mg PO BID #20 tab 03/21/17 [Last Taken Unknown] Doxycycline Monohydrate 100 mg PO BID #20 tablet 04/15/17 [Last Taken Unknown] - History of Present Illness Narrative: Patient presents with a small abscess over the right thumbnail Occurred: other - ongoing for the past few days Severity: moderate Other Injuries: Reports: none Review of Systems - Review of Systems Constitutional: Present: See HPI EYE: Present: no symptoms reported ENT: Present: no symptoms reported Respiratory: Present: no symptoms reported Cardiology: Present: no symptoms reported Gastrointestinal/Abdominal: Present: no symptoms reported Genitourinary: Present: no symptoms reported Musculoskeletal: Present: no symptoms reported, See HPI Skin: Present: no symptoms reported Neurological: Present: no symptoms reported Endocrine: Present: no symptoms reported Hematologic/Lymphatic: Present: no symptoms reported Psych: Present: no symptoms reported - Patient's Past Medical History Patient History - Medical: Anxiety, Diabetes Type 2 Insulin Dependent, Depression, GERD Patient History - Cardiac/Respiratory: COPD, Hypertension, Hyperlipidemia Patient History - Cancer: Breast Patient History - Surgical Procedures: Appendectomy, Cholecystectomy, Gastric Bypass, Other, Hernia Repair, Orthopedic Patient History - Other: None LMP (females 10-50): Menopausal - Family History Mother Family History - Medical: , No pertinent hx Family History - Cardiac/Respiratory: CHF, Hypertension, Hyperlipidemia, Myocardial Infarction Family History - Cancer: No pertinent family hx Father Family History - Medical: , No pertinent hx Family History - Cardiac/Respiratory: COPD Family History - Cancer: Lung Brother Family History - Medical: , No pertinent hx Family History - Cardiac/Respiratory: Other Family History - Cancer: No pertinent family hx - Social History Living Situations: home Abuse History: No History of abuse Psych History: Hx of Anxiety, Hx of Depression, Current tx/ever been on anti- depressants or anti-anxiety meds Smoking Status: Never smoker Have you smoked in the past 12 months: No Alcohol Use: none Drug Use: none - Immunizations Immunizations Up to Date: Yes Hx Pneumococcal Vaccination: Yes History of Influenza Vaccine: Yes Physical Exam - Physical Exam General Appearance: Present: wd/wn, alert, mild distress Head Exam: Present: normal inspection Eye Exam: Normal inspection: bilateral, PERRL: bilateral Ears, Nose, Throat: Present: normal ENT inspection, H, normal pharynx Neck: Present: normal inspection, nontender Respiratory: Present: no respiratory distress, normal breath sounds, no accessory muscle use, chest nontender, lungs clear Cardiovascular/Chest: Present: regular rate, rhythm, no murmur, normal peripheral pulses Gastrointestinal/Abdominal: Present: normal bowel sounds, nontender, nondistended, soft, no organomegaly Rectal Exam: Present: deferred Back Exam: Present: normal inspection, normal range of motion Extremity Exam: Present: normal range of motion, no edema, other - patient presents with erythema, edema and a small abscess around the right thumbnail Neurological Exam: Present: alert, oriented, normal mood/affect Skin Exam: Present: normal color, warm/dry Lymphatic Exam: Present: no adenopathy ED Progress - Vital Signs Patient's Vital Signs:: I have reviewed the patient's vital signs. Vital Signs: Vital Signs 04/15/17 14:32 Temperature 36.9 C Pulse Rate 73 Respiratory 15 Rate Blood Pressure 144/84 O2 Sat by Pulse 98 Oximetry - Progress/Reassessment Chief Complaint: Upper Extremity Injury/Problem Procedures Right 1st Digit Blade Size: 11 Findings and Actions: purulent drainage small Complications: Pt geoffrey procedure well Plan - Plan Plan: Patient be started on a brief course of antibiotics and she will soak the thumb at home to allow for complete drainage. She will refrain from biting her fingernails. Departure Clinical Impression: Paronychia of finger of right hand - Departure Disposition: Home self-care Condition: Good Instructions: Paronychia, [id number], Fingertip Infection Additional Instructions: Soak thumb in Epsom salts Referrals: Gloria Alarcon MD [Primary Care Provider] - Prescriptions: Doxycycline Monohydrate 100 mg PO BID #20 tablet
== END 2017-04-15 15:04 | disposition home or self-care (01) ==
LOC: ER 14:17
PROC: 0H9FXZZ Drainage of Right Hand Skin, External Approach (ICD-10-PCS; principal; 2017-04-15)
DX: L03.011 Cellulitis of right finger (principal); Z85.3 Personal history of malignant neoplasm of breast

== ENCOUNTER 2017-04-28 15:01 | Emergency (ER) | payer MEDICARE, OTHER ==
[2017-04-28 15:09] VITALS: BP 152/92
--- NOTE | 2017-04-28 15:28 | ERNOTE ---
Head Injury HPI - General Injury to: head Time Seen by Provider: 04/28/17 15:11 Source: patient Exam Limitations: no limitations - Immun/Allergies/Home Medications Immunization: IMMUNIZATION HX Immunizations Up to Date Yes History of Influenza Vaccine No Hx Pneumococcal Vaccination No Allergies/Adverse Reactions: Allergies Allergy/AdvReac Type Severity Reaction Status Date / Time bupropion HCl Allergy Mild Hives Verified 04/28/17 15:09 [From Wellbutrin] phenobarbital Allergy Mild Hives Verified 04/28/17 15:09 fluconazole [From Diflucan] AdvReac Mild REDNESS, Verified 04/28/17 15:09 ITCH Sulfa (Sulfonamide AdvReac Mild RED Verified 04/28/17 15:09 Antibiotics) BLOTCHES Home Medications: HOME MEDICATIONS Atorvastatin Calcium [Lipitor] 40 mg PO HS 10/29/14 [Last Taken Unknown] Aspirin [Aspirin Enteric Coated] 81 mg PO DAILY 05/16/15 [Last Taken Unknown] Docusate Sodium [Colace] 100 mg PO BID 05/16/15 [Last Taken Unknown] Levothyroxine Sodium [Synthroid] 50 mcg PO DAILY 05/16/15 [Last Taken Unknown] Blood Sugar Diagnostic, Drum [Accu-Chek Compact Plus Strips] 1 each ACHS # 100 strip 05/29/15 [Last Taken Unknown] Fluticasone/Salmeterol [Advair 250-50 Diskus] 1 puff IH BID #1 inhaler 05/29/15 [Last Taken Unknown] Ammonium Lactate [Lac-Hydrin] 1 appl TP BID 12/11/15 [Last Taken Unknown] Meclizine HCl [Antivert] 25 mg PO TID PRN 12/11/15 [Last Taken Unknown] Polyethylene Glycol 3350 [Miralax] 17 gm PO DAILY 12/11/15 [Last Taken Unknown] Insulin Glargine,Hum.rec.anlog [Lantus] 50 units SC BID 03/03/16 [Last Taken Unknown] Albuterol Sulfate [Proventil Hfa] 1 - 2 puff IH Q4H PRN 01/10/17 [Last Taken Unknown] Albuterol Sulfate/Ipratropium [Duoneb 2.5-0.5MG/3ML Soln] 3 ml IH Q4H PRN [Last Taken Unknown] Amitriptyline HCl [Elavil] 25 mg PO HS 01/10/17 [Last Taken Unknown] Cetirizine HCl [Zyrtec] 10 mg PO HS 01/10/17 [Last Taken Unknown] Cholecalciferol (Vitamin D3) [Vitamin D3] 5,000 unit PO DAILY 01/10/17 [Last Taken Unknown] Duloxetine HCl [Cymbalta] 60 mg PO DAILY 01/10/17 [Last Taken Unknown] Escitalopram Oxalate [Lexapro] 20 mg PO DAILY 01/10/17 [Last Taken Unknown] Exenatide Microspheres [Bydureon Pen] 2 mg SQ Q7D 01/10/17 [Last Taken Unknown] Fluticasone Propionate [Flonase Allergy Relief] 1 spray NS DAILY 01/10/17 [Last Taken Unknown] Insulin Lispro [Humalog] 25 unit SQ AC 01/10/17 [Last Taken Unknown] LORazepam [Ativan] 0.5 mg PO TID PRN 01/10/17 [Last Taken Unknown] Lisinopril [Zestril] 10 mg PO HS 01/10/17 [Last Taken Unknown] Omeprazole 40 mg PO DAILY 01/10/17 [Last Taken Unknown] Topiramate [Topamax] 100 mg PO HS 01/10/17 [Last Taken Unknown] metFORMIN HCL [Metformin HCl ER] 1,000 mg PO BID 01/10/17 [Last Taken Unknown] Doxycycline Hyclate [Vibratab] 100 mg PO BID #20 tab 03/21/17 [Last Taken Unknown] Doxycycline Monohydrate 100 mg PO BID #20 tablet 04/15/17 [Last Taken Unknown] HYDROcodone/ACETAMINOPHEN [Baker 5-325] 1 each PO Q8H PRN #10 tablet 04/28/17 [ Last Taken Unknown] - History of Present Illness Narrative: Patient was walking up stairs around 13:30 when she fell backwards down three steps (not sure why). She hit her head, did not pass out and was able to get up with the help of a friend. Ever since she has had a headache and not felt well, blurry vision Occurred: just prior to arrival Location Occurred: home Severity: severe Head Injury Location: occipital Method of Injury: Reports: fell Reason for Fall: Reports: unknown Loss of Consciousness: Reports: no loss of consciousness, remembers event, remembers coming to hospital Associated Symptoms: Reports: headaches. Denies: chest pain, cough, shortness of breath, fever/chills Review of Systems - Review of Systems Constitutional: Absent: recent illness, fever ENT: Absent: nose pain Respiratory: Absent: shortness of breath Cardiology: Absent: chest pain Gastrointestinal/Abdominal: Absent: nausea, vomiting, abdominal pain Genitourinary: Present: no symptoms reported Musculoskeletal: Present: See HPI Neurological: Present: headache. Absent: weakness, numbness Endocrine: Present: no symptoms reported - Patient's Past Medical History Patient History - Medical: Anxiety, Diabetes Type 2 Insulin Dependent, Depression Patient History - Cardiac/Respiratory: Hyperlipidemia Patient History - Cancer: No Hx of Cancer Patient History - Surgical Procedures: Appendectomy, Cholecystectomy, Gastric Bypass, Other, Hernia Repair, Orthopedic Patient History - Other: None - Family History Mother Family History - Medical: , No pertinent hx Family History - Cardiac/Respiratory: CHF, Hypertension, Hyperlipidemia, Myocardial Infarction Family History - Cancer: No pertinent family hx Father Family History - Medical: , No pertinent hx Family History - Cardiac/Respiratory: COPD Family History - Cancer: Lung Brother Family History - Medical: , No pertinent hx Family History - Cardiac/Respiratory: Other Family History - Cancer: No pertinent family hx - Social History Living Situations: home Abuse History: No History of abuse Psych History: Hx of Anxiety, Hx of Depression, Current tx/ever been on anti- depressants or anti-anxiety meds Smoking Status: Never smoker Alcohol Use: none Drug Use: none - Immunizations Immunizations Up to Date: Yes Hx Pneumococcal Vaccination: No History of Influenza Vaccine: No Physical Exam - Physical Exam General Appearance: Present: wd/wn, alert, no apparent distress Head Exam: Present: normal inspection, no evidence of injury Eye Exam: Normal inspection: bilateral, PERRL: bilateral, EOMI: bilateral Ears, Nose, Throat: Present: normal ENT inspection, normal pharynx Neck: Present: normal inspection, nontender, supple, full range of motion Respiratory: Present: no respiratory distress, normal breath sounds, no accessory muscle use, lungs clear Cardiovascular/Chest: Present: regular rate, rhythm, no murmur, normal peripheral pulses Gastrointestinal/Abdominal: Present: normal bowel sounds, nontender, nondistended, soft Back Exam: Present: normal inspection, vertebral tenderness - lumbar spine Extremity Exam: Present: normal inspection, non-tender, no edema Neurological Exam: Present: alert, oriented, normal mood/affect Skin Exam: Present: normal color, warm/dry ED Progress - Vital Signs Patient's Vital Signs:: I have reviewed the patient's vital signs. Vital Signs: Vital Signs 04/28/17 15:04 Temperature 36.5 C Pulse Rate 82 Respiratory 16 Rate Blood Pressure 152/92 O2 Sat by Pulse 94 Oximetry - X-Ray X-Ray #1 X-Ray: lumbosacral - chronic no acute changes Interpretation: Reviewed by me - CT/Ultrasound CT/Ultrasound Narrative: CT head: no acute findings - Progress/Reassessment Chief Complaint: General Assessment Progress Note-Subjective: 04/28/17 16:21 discussed imaging results with patient patient sleeping but easily arousable, usually takes vicodin for chronic back pain but has been out for a while Departure Clinical Impression: Concussion Qualifiers: Encounter type: initial encounter Loss of consciousness presence/duration: without LOC Qualified Code(s): S06.0X0A - Concussion without loss of consciousness, initial encounter Lumbar spine strain Qualifiers: Encounter type: initial encounter Qualified Code(s): S39.012A - Strain of muscle, fascia and tendon of lower back, initial encounter - Departure Disposition: Home self-care Condition: Good Instructions: Concussion, Adult, [id number], Back Pain, Adult, [id number] Additional Instructions: call your doctor for follow up Referrals: Gloria Alarcon MD [Primary Care Provider] - Prescriptions: HYDROcodone/ACETAMINOPHEN [Baker 5-325] 1 each PO Q8H PRN #10 tablet PRN Reason: Pain
[2017-04-28] MEDS ORDERED: KETOROLAC TROMETHAMINE 60 MG/2 ML VIAL IM ONE ×2 (16:20→16:28)
== END 2017-04-28 16:37 | disposition home or self-care (01) ==
LOC: ER 15:01
DX: S06.0X0A Concussion without loss of consciousness, initial encounter (principal); S39.012A Strain of muscle, fascia and tendon of lower back, initial encounter; W10.9XXA Fall (on) (from) unspecified stairs and steps, initial encounter; Y92.009 Unspecified place in unspecified non-institutional (private) residence as the place of occurrence of the external cause

== ENCOUNTER 2017-06-11 16:33 | Emergency (ER) | payer MEDICARE, OTHER ==
[2017-06-11] MEDS ORDERED: MORPHINE SULFATE 4 MG/ML SYRG SC ONE (17:03)
[2017-06-11] MEDS ORDERED: MORPHINE SULFATE 4 MG/ML SYRG ONE (17:14)
--- NOTE | 2017-06-11 17:29 | ERNOTE ---
Trauma/Assault HPI - General Stated Complaint: FALL. RT LEG PAIN. BACK PAIN Time Seen by Provider: 06/11/17 16:59 Source: patient Exam Limitations: no limitations - Immun/Allergies/Home Medications Immunizations: IMMUNIZATION HX Immunizations Up to Date Yes History of Influenza Vaccine No Hx Pneumococcal Vaccination No Allergies/Adverse Reactions: Allergies bupropion HCl [From Wellbutrin] Allergy (Mild, Verified 06/11/17 16:58) Hives phenobarbital Allergy (Mild, Verified 06/11/17 16:58) Hives acetaminophen [From Percocet] Adverse Reaction (Mild, Verified 06/11/17 16:58) CONFUSION, DISORIENTATION fluconazole [From Diflucan] Adverse Reaction (Mild, Verified 06/11/17 16:58) REDNESS, ITCH oxycodone [From Percocet] Adverse Reaction (Mild, Verified 06/11/17 16:58) CONFUSION, DISORIENTATION Sulfa (Sulfonamide Antibiotics) Adverse Reaction (Mild, Verified 06/11/17 16:58) RED BLOTCHES Home Medications: HOME MEDICATIONS Atorvastatin Calcium [Lipitor] 40 mg PO HS 10/29/14 [Last Taken Unknown] Aspirin [Aspirin Enteric Coated] 81 mg PO DAILY 05/16/15 [Last Taken Unknown] Docusate Sodium [Colace] 100 mg PO BID 05/16/15 [Last Taken Unknown] Levothyroxine Sodium [Synthroid] 50 mcg PO DAILY 05/16/15 [Last Taken Unknown] Blood Sugar Diagnostic, Drum [Accu-Chek Compact Plus Strips] 1 each ACHS # 100 strip 05/29/15 [Last Taken Unknown] Fluticasone/Salmeterol [Advair 250-50 Diskus] 1 puff IH BID #1 inhaler 05/29/15 [Last Taken Unknown] Meclizine HCl [Antivert] 25 mg PO TID PRN 12/11/15 [Last Taken Unknown] Polyethylene Glycol 3350 [Miralax] 17 gm PO DAILY 12/11/15 [Last Taken Unknown] Insulin Glargine,Hum.rec.anlog [Lantus] 50 units SC BID 03/03/16 [Last Taken Unknown] Albuterol Sulfate [Proventil Hfa] 1 - 2 puff IH Q4H PRN 01/10/17 [Last Taken Unknown] Albuterol Sulfate/Ipratropium [Duoneb 2.5-0.5MG/3ML Soln] 3 ml IH Q4H PRN [Last Taken Unknown] Amitriptyline HCl [Elavil] 25 mg PO HS 01/10/17 [Last Taken Unknown] Cetirizine HCl [Zyrtec] 10 mg PO HS 01/10/17 [Last Taken Unknown] Cholecalciferol (Vitamin D3) [Vitamin D3] 5,000 unit PO DAILY 01/10/17 [Last Taken Unknown] Escitalopram Oxalate [Lexapro] 20 mg PO DAILY 01/10/17 [Last Taken Unknown] Fluticasone Propionate [Flonase Allergy Relief] 1 spray NS DAILY 01/10/17 [Last Taken Unknown] Insulin Lispro [Humalog] 30 unit SQ AC 01/10/17 [Last Taken Unknown] LORazepam [Ativan] 0.5 mg PO TID PRN 01/10/17 [Last Taken Unknown] Topiramate [Topamax] 100 mg PO HS 01/10/17 [Last Taken Unknown] Duloxetine HCl [Cymbalta] 60 mg PO DAILY 06/02/17 [Last Taken Unknown] Gabapentin [Neurontin] 300 mg PO TID 06/02/17 [Last Taken Unknown] HYDROcodone/ACETAMINOPHEN [[place] 5-325] 1 each PO Q12H PRN 06/02/17 [Last Taken Unknown] Lisinopril [Prinivil] 5 mg PO HS 06/02/17 [Last Taken Unknown] Pantoprazole Sodium [Protonix] 40 mg PO DAILY 06/02/17 [Last Taken Unknown] HYDROcodone/ACETAMINOPHEN [[place] 5-325] 1 each PO Q4H #20 tablet 06/11/17 [Last Taken Unknown] - History of Present Illness Narrative: Patient complains of fairly severe right knee pain. Patient states that she twisted her knee falling and then somehow torqued about and landed on the right knee. Patient states that she really is not capable weightbearing and cannot even bend the knee because of the severe pain. Incident happened just prior to arrival. Location Occurred: Reports: home Pain Location: Reports: lower extremity - right knee Method of Injury: Reports: fall Severity: severe Modifying Factors - (Improves): Reports: immobilization Modifying Factors - (Worsens): Reports: movement, other - any weightbearing Loss of Consciousness: Reports: no loss of consciousness Associated Symptoms - Trauma: Reports: denies symptoms Review of Systems - Review of Systems Constitutional: Present: See HPI EYE: Present: no symptoms reported ENT: Present: no symptoms reported Respiratory: Present: no symptoms reported Cardiology: Present: no symptoms reported Gastrointestinal/Abdominal: Present: no symptoms reported Genitourinary: Present: no symptoms reported Musculoskeletal: Present: joint pain, joint swelling Skin: Present: no symptoms reported Neurological: Present: no symptoms reported Endocrine: Present: no symptoms reported Hematologic/Lymphatic: Present: no symptoms reported Psych: Present: no symptoms reported - Patient's Past Medical History Patient History - Medical: Anxiety, Diabetes Type 2 Insulin Dependent, Depression Patient History - Cardiac/Respiratory: Hyperlipidemia Patient History - Cancer: No Hx of Cancer Patient History - Surgical Procedures: Appendectomy, Cholecystectomy, Gastric Bypass, Other, Hernia Repair, Orthopedic Patient History - Other: None LMP (females 10-50): Menopausal - Family History Mother Family History - Medical: , No pertinent hx Family History - Cardiac/Respiratory: CHF, Hypertension, Hyperlipidemia, Myocardial Infarction Family History - Cancer: No pertinent family hx Father Family History - Medical: , No pertinent hx Family History - Cardiac/Respiratory: COPD Family History - Cancer: Lung Brother Family History - Medical: , No pertinent hx Family History - Cardiac/Respiratory: Other Family History - Cancer: No pertinent family hx - Social History Living Situations: home Abuse History: No History of abuse Psych History: Hx of Anxiety, Hx of Depression, Current tx/ever been on anti- depressants or anti-anxiety meds Smoking Status: Never smoker - Immunizations Immunizations Up to Date: Yes Hx Pneumococcal Vaccination: No History of Influenza Vaccine: No Physical Exam - Physical Exam General Appearance: Present: wd/wn, alert, severe distress Head Exam: Present: normal inspection Eye Exam: Normal inspection: bilateral, PERRL: bilateral Ears, Nose, Throat: Present: normal ENT inspection, H, normal pharynx Neck: Present: normal inspection, nontender Respiratory: Present: no respiratory distress, normal breath sounds, no accessory muscle use, chest nontender, lungs clear Cardiovascular/Chest: Present: regular rate, rhythm, no murmur, normal peripheral pulses Gastrointestinal/Abdominal: Present: normal bowel sounds, nontender, nondistended, soft, no organomegaly Rectal Exam: Present: deferred Back Exam: Present: normal inspection, normal range of motion Extremity Exam: Present: decreased range of motion, joint swelling, other - profound tenderness in the right knee with any form of palpation or range of motion Neurological Exam: Present: alert, oriented, normal mood/affect Skin Exam: Present: normal color, warm/dry Lymphatic Exam: Present: no adenopathy ED Progress - Vital Signs Patient's Vital Signs:: I have reviewed the patient's vital signs. Vital Signs: Vital Signs 06/11/17 06/11/17 16:49 17:19 Temperature 37.1 C Pulse Rate 78 81 Respiratory 16 16 Rate Blood Pressure 131/75 128/66 O2 Sat by Pulse 100 100 Oximetry - X-Ray X-Ray #1 X-Ray: knee Interpretation: Reviewed by me - Progress/Reassessment Chief Complaint: Fall Plan - Plan Plan: While no fractures found on both plain film and CT of the right knee, we have to consider the possibility of internal derangement of the right knee. Patient came in with crutches, she'll be placed on the immobilizer, be given something for pain and she will call Dr. Fierro's office in the morning for follow-up Departure Clinical Impression: Right knee sprain Qualifiers: Encounter type: initial encounter Involved ligament of knee: unspecified ligament Qualified Code(s): S83.91XA - Sprain of unspecified site of right knee , initial encounter - Departure Disposition: Home self-care Condition: Good Instructions: Knee Pain, [id number], Knee Sprain, [id number] Referrals: Karen Rolon MD [Primary Care Provider] - Prescriptions: HYDROcodone/ACETAMINOPHEN [[place] 5-325] 1 each PO Q4H #20 tablet Critical Care Time - Critical Care Critical Time Spent:: No Total time (mins) Spent:: 0
[2017-06-11 20:02] VITALS: BP 127/71
== END 2017-06-11 19:15 | disposition home or self-care (01) ==
LOC: ER 16:33
PROC: 2W3LX1Z Immobilization of Right Lower Extremity using Splint (ICD-10-PCS; principal; 2017-06-11)
DX: S83.91XA Sprain of unspecified site of right knee, initial encounter (principal); W18.30XA Fall on same level, unspecified, initial encounter; Y93.01 Activity, walking, marching and hiking; Y92.009 Unspecified place in unspecified non-institutional (private) residence as the place of occurrence of the external cause

== ENCOUNTER 2018-11-16 06:19 | Inpatient (IN) ==
[~2018-11-16 06:19] MED LIST changes: +MORPHINE SULFATE 15 MG TABLET.SA PO PRN; -RINGERS SOLUTION,LACTATED 1,000 ML IV PRN; +TRANEXAMIC ACID 1,000 MG in NORMAL SALINE 100 ML IV PRN
[2018-11-16] MEDS: RINGER'S SOLUTION,LACTATED 1,000 ML IV PRN ×2 (07:03→08:39)
--- NOTE | 2018-11-16 07:38 | ANES ---
Anesthesia Pre Procedure Eval Vitals/Labs: Last Vital Signs Temp 36.4 C 11/16/18 06:32 Pulse 76 11/16/18 06:32 Resp 18 11/16/18 06:32 BP 155/63 H 11/16/18 06:32 Pulse Ox 95 11/16/18 06:32 HOME MEDICATIONS Aspirin [Aspirin Enteric Coated] 81 mg PO DAILY 05/16/15 [Last Taken 11/09/18 08:00] Levothyroxine Sodium [Synthroid] 50 mcg PO DAILY 05/16/15 [Last Taken Unknown] Albuterol Sulfate [Proventil Hfa] 1 - 2 puff INHALATION Q4H PRN 01/10/17 [Last Taken Unknown] Amitriptyline HCl [Elavil] 25 mg PO HS 01/10/17 [Last Taken Unknown] Cholecalciferol (Vitamin D3) [Vitamin D3] 1,000 unit PO DAILY 01/10/17 [Last Taken Unknown] Gabapentin [Neurontin] 300 mg PO TID 06/02/17 [Last Taken Unknown] Cyanocobalamin [Vitamin B-12] 1,000 mcg PO DAILY 11/13/17 [Last Taken Unknown] Montelukast Sodium [Singulair] 10 mg PO HS 11/13/17 [Last Taken Unknown] Mv-Mn/Folic Acid/Calcium/Vit K [Women's 50 Plus Daily Formula] 1 ea PO DAILY 11/13/17 [Last Taken Unknown] Ubidecarenone [Co Q-10] 200 mg PO DAILY 11/13/17 [Last Taken Unknown] Doxycycline Hyclate [Vibratab] 100 mg PO BID #20 tab 11/14/17 [Last Taken Unknown] atorvastatin 40 mg tablet 40 mg PO HS tab 06/01/18 [Last Taken Unknown] docusate sodium 100 mg tablet 100 mg PO BID 06/01/18 [Last Taken Unknown] fluticasone 250 mcg-salmeterol 50 mcg/dose blistr powdr for inhalation 1 inh IH BID 06/01/18 [Last Taken Unknown] fluticasone 50 mcg/actuation nasal spray,suspension 1 spray NITESH DAILY 06/01/18 [Last Taken Unknown] ipratropium-albuterol 0.5 mg-3 mg(2.5 mg base)/3 mL nebulization soln 3 ml IH Q4H PRN ml 06/01/18 [Last Taken Unknown] meclizine 25 mg tablet 25 mg PO TID PRN 06/01/18 [Last Taken Unknown] pantoprazole 40 mg tablet,delayed release 40 mg PO DAILY 06/02/18 [Last Taken Unknown] hydrocodone 5 mg-acetaminophen 325 mg tablet See Rx Instructions PO .COMPLEX PRN #30 tab 06/16/18 [Last Taken Unknown] diphenhydrAMINE HCL [Benadryl] 25 mg PO Q6H PRN #30 cap 10/22/18 [Last Taken Unknown] Cetirizine HCl [Zyrtec] 10 mg PO DAILY 11/16/18 [Last Taken Unknown] Duloxetine HCl [Cymbalta] 60 mg PO DAILY 11/16/18 [Last Taken Unknown] Insulin Glargine,Hum.rec.anlog [Tojerome Solvijaya] 200 unit SQ DAILY 11/16/18 [Last Taken Unknown] Lisinopril/Hydrochlorothiazide [Lisinopril-Hctz 10-12.5 mg Tab] 1 ea PO DAILY 11/16/18 [Last Taken 11/16/18 05:30] Tiotropium [place] [Spiriva] 18 mcg INHALATION PRN PRN 11/16/18 [Last Taken Unknown] Allergies/Adverse Reactions: Allergies Allergy/AdvReac Type Severity Reaction Status Date / Time bupropion HCl Allergy Mild Hives Verified 11/16/18 06:40 [From Wellbutrin] fluconazole [From Diflucan] Allergy Mild REDNESS, Verified 11/16/18 07:08 ITCH phenobarbital Allergy Mild Hives Verified 11/16/18 06:40 Sulfa (Sulfonamide Allergy Mild RED Verified 11/16/18 06:40 Antibiotics) BLOTCHES oxycodone [From Percocet] AdvReac Mild CONFUSION, Verified 11/16/18 06:40 DISORIENTATION - Planned Procedure Planned Procedure: Right Arthroplasty Total Shoulder Reverse Medication List Reviewed:: Yes Allergies Verified: Yes Medical History (Updated 11/16/18 @ 06:39 by Jeni Mtz) COPD (chronic obstructive pulmonary disease) Abnormal Pap smear of cervix Onset Date: 2008 Depression Onset Date: 05/06/15 Diabetic peripheral neuropathy Onset Date: 10/26/15 GERD (gastroesophageal reflux disease) Onset Date: 06/06/15 Generalized anxiety disorder Onset Date: 06/06/15 Hyperlipidemia Onset Date: 05/12/16 Hypertension, essential, benign Onset Date: 06/06/15 Hypothyroidism Onset Date: 05/12/16 Insomnia Onset Date: 08/17/15 Low back pain Onset Date: 07/11/15 Migraine Onset Date: 07/11/15 Morbid obesity Onset Date: 05/12/16 Obesity Class III = Extreme Obesity JAY (obstructive sleep apnea) Onset Date: 12/13/15 AHI 13/hr, lowest O2 sat 79%, PLMS 16.5/hr, FMCH 01/11/15 Rotator cuff tear arthropathy of right shoulder Onset Date: Unknown Shoulder pain, right Onset Date: ~2017 Uncontrolled type 2 diabetes mellitus Onset Date: 05/12/16 Surgical History (Updated 06/01/18 @ 08:14 by Jennifer Harkins) History of appendectomy Onset Date: 1968 History of cholecystectomy Onset Date: 1984 History of colonoscopy Onset Date: 2012 History of colposcopy Onset Date: 2008 MARCELINA I History of esophagogastroduodenoscopy (EGD) Onset Date: 09/09/07 ' Tinguely-mild esophagitis. ' [place]-mod active chronic gastritis. 05/25/02, 09/09/07 History of foot surgery Onset Date: 01/13/17 Dr Colón-Excision ganglion cyst dorsum of left foot. History of hernia repair Onset Date: Unknown 2 incisional hernias History of laryngoscopy Onset Date: 09/25/00 Patti History of repair of rotator cuff Onset Date: 01/31/17 Right shoulder arthroscopy witn mini open massive RCR, Luke procedure, subacromial decompression with acromioplasty, biceps tenotomy---Dr. Corrales History of splenectomy Onset Date: ~1999 Emergent splenectomy for bleeding a few days after having surgery for a hiatal hernia Status post epidural steroid injection Onset Date: 07/17/14 '04 L5-S1, ' L4-5- 11/03/03, 07/17/14 Status post gastroplasty Onset Date: 1978 take down of this and possible fundoplication for GERD in 05/1999 Family History (Updated 06/01/18 @ 07:52 by Jennifer Harkins) Father , age 68 Cancer lung Diabetes Mother , age 76 CHF (congestive heart failure) Brother , age 23 Brain aneurysm - Family Anesthesia History Family History:: no untoward family reactions to anesthesia - Airway/Neck/Teeth Teeth Condition: missing Neck Exam: full range of motion Mallampatti Score: 3 Thyromental (T-M) distance: > 6 cm Mandibulo Hyoid distance: > 3 cm - Respiratory Respiratory History: COPD Respiratory Physical: lungs clear Smoking Status: Never smoker Sleep Apnea by current assessment: Yes Discussed Risks/Treatment of JAY: Yes - Cardiovascular Cardiac History: hypertension, hyperlipidemia Tolerate Activity: Fair Heart Sounds: S1 & S2, Regular - Anesthesia Assessment and Plan ASA Class: PS, III Anesthesia Type Plan: General LMA - rt interscalene nerve block Planned difficult intubation/equipment available: No
[2018-11-16] MEDS ORDERED: ZOLPIDEM TARTRATE 5 MG TABLET PO PRN (10:21)
[2018-11-16] MEDS ORDERED: MAG HYDROX/ALUMINUM HYD/SIMETH 30 ML UDC PO PRN (10:21)
[2018-11-16] MEDS ORDERED: ONDANSETRON HCL/PF 2 MG/ML VIAL IV PRN (10:21)
[2018-11-16] MEDS ORDERED: MAGNESIUM HYDROXIDE 30 ML UDC PO PRN (10:21)
[2018-11-16] MEDS ORDERED: RINGER'S SOLUTION,LACTATED 1,000 ML IV PRN (10:21)
[2018-11-16] MEDS ORDERED: diphenhydrAMINE HCL 50 MG/ML VIAL IV PRN (10:21)
[2018-11-16] MEDS ORDERED: diphenhydrAMINE HCL 25 MG CAPSULE PO PRN (10:26)
[2018-11-16] MEDS ORDERED: TIOTROPIUM BROMIDE 5 CAP INHALER IH PRN (10:26)
[2018-11-16] MEDS ORDERED: MECLIZINE HCL 25 MG TABLET PO PRN (10:26)
[2018-11-16] MEDS ORDERED: ALBUTEROL SULFATE/IPRATROPIUM 3 ML NEBU IH PRN (10:26)
--- NOTE | 2018-11-16 10:37 | OR ---
Operative Report - Dictated Report Narrative: DATE OF PROCEDURE: 11/16/2018 PHYSICIAN: Bharath Corrales MD ENGINEERING TECHNICIAN PARKING: Juan Victor PA-C (provided and essential set of skilled, educated hands that assisted with transfer, positioning, prepping, draping, manipulation, retraction, placement of implants, irrigation, closure wounds, and application of dressings all which cannot be performed by the available surgical crew) PREOPERATIVE DIAGNOSIS: Right rotator cuff deficient shoulder arthrosis. POSTOPERATIVE DIAGNOSIS: Right rotator cuff deficient shoulder arthrosis. OPERATIONS AND PROCEDURES: Right reverse total shoulder arthroplasty. Removal of deep implants right proximal humerus ANESTHESIA: General plus regional. COMPLICATIONS: None. DRAINS: None. SPECIMENS: Bone. ESTIMATED BLOOD LOSS: 75 mL. RETAINED IMPLANTS: 1. DePuy Delta Xtend cementless metaglene. 2. Delta Xtend glenosphere, 38 mm standard. 3. Delta Xtend size 12 modular humeral RODRIGUEZ-coated cementless stem. 4. Size 1 right modular eccentric epiphysis RODRIGUEZ-coated cementless. 5. Delta Xtend standard polyethylene size 38 plus 3 mm. 6. Metaglene locking screws, 36 mm and 36 mm in length. 7. Nonlocking metaglene screws, 18 mm x 2 . INDICATIONS FOR PROCEDURE: Mrs. Lewis is a 58-year-old female with significant past history of rotator cuff tears and deficiency. She had treated these conservatively and had an irreparable rotator cuff with some progression of arthrosis of the shoulder and difficulty with activities of daily living in pain. She was seen in clinic and had failed conservative measures. She wished to proceed with surgical treatment. The risks, benefits, and alternatives were discussed in clinic, including the risk of , blood clots, bleeding, infection, nerve/tendon/blood vessel injury, malposition of components, failure of components, wear or limited range of motion, stiffness, and need for additional procedures, and she wished to proceed. Consent was obtained here in the clinic. DESCRIPTION OF PROCEDURE: After marking the correct extremity in the preoperative holding area, the patient was taken to the operating room. A timeout was performed. IV antibiotics consisting of Ancef were administered prior to procedure. The regional followed by general anesthetic was induced by the nurse machine cloth examiner at my request. She was then transitioned to beach chair position with all bony prominences well padded. The head in neutral, legs with SCDs and supported,and the nonoperative arm supported. The surgical arm was prescrubbed with alcohol then prepped and draped in the standard sterile fashion and the skin was covered with ioban. A deltopectoral incision was made and blunt dissection was carried down through the skin. The cephalic vein was identified, protected, and retracted. We then went through the deltopectoral interval, exposing the proximal humerus. It was noted that there was no rotator cuff, supraspinatus and infraspinatus tendon, or teres minor tendon. There were retained plastic suture anchors with suture which were in the bone but not attached to the tendon which were removed using a rongeur. The subscapularis was intact as well as the biceps. A tag suture was placed in subscapularis tendon as well as the anterior capsule, and this was elevated off the anterior humerus passing along the bicipital groove and into the rotator cuff interval, exposing the proximal humerus. This was then freed off the proximal humerus. A biceps tenotomy was performed and the shoulder was dislocated. The humeral head was noted to show signs of arthrosis. Next, an entry drill was placed down the humerus centered on the longitudinal axis entering off just onto the articular surface on the humeral head. Next were serial reamers up to the size 12 were utilized, which gave good overall cortical contact. Next, a proximal humeral head cut was performed. We made the cut at approximately 5 degrees of retroversion. This appeared to resect an appropriate amount of humeral head. This was then pinned into place and an oscillating saw was utilized to cut this humeral head, protecting the surrounding soft tissues. We then placed a cap over the proximal humerus and turned our attention to the glenoid. The soft tissues were then elevated off the humeral neck as well as circumferentially around the glenoid. The glenoid was exposed. The remaining biceps tendon and labrum were resected. Using tractors, the glenoid was exposed and a guidewire was placed just posterior and inferior to the center of the glenoid. This was made so that it directed slightly superiorly but otherwise perpendicular to the glenoid on the axillary plane. Protecting the surrounding soft tissues, a reamer was utilized in order to remove the remaining cartilage. A fretted instrument maker hand was utilized in order to resect the superior cartilage, and this resulted in a good overall appearance of the glenoid. The center drill lug hole was drilled and had good circumferential bone. The metaglene was then impacted into place and oriented for placement of screws along the mid plane in the superior and inferior quadrants of the glenoid as well as anterior to posterior screws. These were drilled and had appropriate overall length of screws on the superior and inferior metaglene screws. Good purchase was obtained with a 36 mm screw superiorly and 36 mm screw inferiorly. The anterior and posterior screws were drilled and 18 mm anterior and 18mm posterior nonlocking screws were placed. We then locked the superior and inferior screws into place. This gave good overall compression down to the glenoid with flat overall appearance and an appropriate alignment. We returned our attention to the proximal humerus. The proximal humeral reaming guide was placed for an eccentric reamer. This was utilized in order to prepare the proximal humerus. The trial stem was assembled on the back table and impacted into place. After placing the trial stem, we then returned to the metaglene. The glenosphere was then secured to the metaglene, impacted, and tightened ensuring that this was seated completely. We then returned to the humeral component and placed the trials of polyethylene inserts and found that the 3mm gave good overall longitudinal traction with no gapping. The shoulder was able to reach 140 degrees of forward flexion and 130 degrees of abduction, external rotation was to 90 degrees and with fulcrum and armpit were unable to hinge the joint out of place, and there was no essentially no gapping of the polyethylene off the humeral head nor any signs of impingement on the glenoid neck. We felt that these were the appropriately placed and sized implants. We then dislocated the shoulder, removed the trial implants, thoroughly irrigated the humerus, impacted the final implants into place in the prior determined retroversion. The trial polyethylene was utilized again and was noted that the actual stem and the trial stem were equal in tension, and thus the final polyethylene was impacted into place. The shoulder was reduced, again noted to be stable, was then thoroughly irrigated. The subscapularis and biceps tendon were secured to the surrounding soft tissues using a #1 Ethibond suture. The deltopectoral interval was closed with 0 Vicryl. The deep tissues were then closed with #0 Vicryl, subcutaneous with 3-0 Monocryl, and the skin with sandip. Xeroform, 4 x 4, ABD, soft roll, and forearm Hpi was applied. The patient was placed in a shoulder sling, awoken, and transferred to postanesthesia care in stable condition. All sponge, needle, and instrument counts were correct prior to closing the wounds. We will obtain postoperative f ilms and be admitted to the floor for postoperative pain control, IV antibiotics, and starting of physical therapy. I anticipate a one to two night hospital stay.
[2018-11-16] MEDS ORDERED: ALBUTEROL SULFATE 2.5 MG/0.5 ML VIAL.NEB IH PRN (10:45)
--- NOTE | 2018-11-16 10:58 | ANES ---
Post Anesthesia Discharge - Transfer of Care Transfer of Care handoff given to nurse: Yes - Discharge from PACU Discharge from PACU when meets criteria: Yes
--- NOTE | 2018-11-16 11:34 | ANES ---
Post Anesthesia Assessment - Vital Signs Vitals: Last Vital Signs Temp 36.8 C 11/16/18 11:15 Pulse 82 11/16/18 11:15 Resp 18 11/16/18 11:15 BP 150/69 H 11/16/18 11:15 Pulse Ox 97 11/16/18 11:15 Airway Patency: Normal - Mental Status Level Of Consciousness: Awake - Pain Level Pain Score: 0 - N/V Assessment Nausea/Vomiting Presence: None Dehydration:: No
--- NOTE | 2018-11-16 11:38 | ANES ---
Anesthesia Procedure Note Procedure Note: ANESTHESIA PROCEDURE NOTE Date of procedure: 11/16/2018. Time of procedure: 07 45. Performed by: Aquilino Juarez CRNA Instruction Assistant Principal: Vilma Ruelas RN . Preprocedure diagnosis: Right shoulder DJD. Desire for postoperative analgesia. Post procedure diagnosis: Same. Procedure: Ultrasound-guided right interscalene nerve block Indications: Postoperative analgesia. Findings: Patient brought to operating room #4 and placed in a semi-garza's position. Patient was sedated. The right side of patient's neck was prepped with ChloraPrep. Ultrasound was utilized to identify the brachial plexus in the right interscalene groove. A 22-gauge 2 inch regional block needle was advanced under ultrasound guidance until tip of needle was positioned just anterior to brachial plexus. 20 mL of 0.5% Marcaine with epinephrine 1-200,000 was injected with adequate spread of local anesthesia noted. Regional block needle was then repositioned until tip was placed just posterior to the brachial plexus. A second dose of 20 mL of 0.5% Marcaine with epinephrine 1-200,000 was injected with adequate spread of local anesthesia again noted. Regional block needle was removed intact. EBL: Minimal. Fluids: N/A. Specimen: N/A. Post procedure condition: The patient tolerated the procedure well. No complications were noted. Thank you for this consultation Aquilino Juarez CRNA
[2018-11-16] MEDS: KETOROLAC TROMETHAMINE 15 MG/ML VIAL IV SCH ×3 (11:41→23:00)
[2018-11-16] MEDS: ceFAZolin SODIUM 1 GM in DEXTROSE 5 % IN WATER 50 ML IV SCH ×4 (11:41→17:28)
[2018-11-16] MEDS: GABAPENTIN 300 MG CAPSULE PO SCH ×2 (12:53→17:06)
[2018-11-16] MEDS: ACETAMINOPHEN 500 MG TABLET PO PRN (12:58)
[2018-11-16] MEDS ORDERED: INSULIN GLARGINE,HUM.REC.ANLOG 100 UNITS/ML VIAL SC ONE (16:36)
[2018-11-16] MEDS: HYDROcodone/ACETAMINOPHEN 1 EACH TABLET PO PRN (18:59)
[2018-11-16] MEDS: FLUTICASONE PROPION/SALMETEROL 14 PUFF DISK.W.DEV IH SCH (21:28)
[2018-11-16] MEDS: DOCUSATE SODIUM 100 MG CAPSULE PO SCH (21:29)
[2018-11-16] MEDS: AMITRIPTYLINE HCL 25 MG TABLET PO SCH (21:30)
[2018-11-16] MEDS: SENNOSIDES/DOCUSATE SODIUM 1 TAB TABLET PO SCH (21:30)
[2018-11-16] MEDS: ROSUVASTATIN CALCIUM 20 MG TABLET PO SCH (21:30)
[2018-11-16] MEDS: DOXYCYCLINE HYCLATE 100 MG TABLET PO SCH (21:31)
[2018-11-16] MEDS: MONTELUKAST SODIUM 10 MG TABLET PO SCH (21:31)
[2018-11-16] MEDS: MORPHINE SULFATE 15 MG TABLET.SA PO SCH (21:34)
[2018-11-17] MEDS: HYDROcodone/ACETAMINOPHEN 1 EACH TABLET PO PRN ×2 (01:11→07:22)
[2018-11-17] MEDS: ceFAZolin SODIUM 1 GM in DEXTROSE 5 % IN WATER 50 ML IV SCH ×2 (01:12)
[2018-11-17] MEDS: KETOROLAC TROMETHAMINE 15 MG/ML VIAL IV SCH ×4 (04:57→22:09)
[2018-11-17 05:22] LABS: Hematocrit 35.1 % (37.0-47.0); Hemoglobin 10.8 gm/dL (12.5-16.0); Mean Corpuscular Hemoglobin 26.2 pg (27-31); Mean Corpuscular Hgb Conc 30.8 g/dl (32-36); Mean Platelet Volume 10.4 fl (8-12.5); Platelet Count 325 K/mm3 (150-450); Red Blood Count 4.13 M/mm3 (4.2-5.4); Red Cell Distribution Width 14.7 % (11.5-14.0); White Blood Count 11.5 K/mm3 (4.0-10.5)
[2018-11-17 05:39] LABS: Anion Gap 10.2 mmol/L (6.8-13.8); BUN/Creatinine Ratio 18.5 (9.0-21.6); Calcium * 8.6 mg/dL (7.9-10.9); Carbon Dioxide 29.6 mmol/L (24-32.6); Estimated Creat Clear 69.5; Potassium 3.8 mmol/L (3.4-4.6)
[2018-11-17] MEDS: FLUTICASONE PROPIONATE 120 SPRAY INHALER NS SCH (08:27)
[2018-11-17] MEDS: FLUTICASONE PROPION/SALMETEROL 14 PUFF DISK.W.DEV IH SCH ×2 (08:27→20:06)
[2018-11-17] MEDS: GABAPENTIN 300 MG CAPSULE PO SCH ×3 (08:29→17:07)
[2018-11-17] MEDS: PANTOPRAZOLE SODIUM 40 MG TABLET.EC PO SCH (08:30)
[2018-11-17] MEDS: ASPIRIN 325 MG TABLET.DR PO SCH (08:30)
[2018-11-17] MEDS: CYANOCOBALAMIN 1,000 MCG TABLET PO SCH (08:30)
[2018-11-17] MEDS: DOCUSATE SODIUM 100 MG CAPSULE PO SCH ×2 (08:30→20:06)
[2018-11-17] MEDS: DOXYCYCLINE HYCLATE 100 MG TABLET PO SCH (08:30)
[2018-11-17] MEDS: LORATADINE 10 MG TABLET PO SCH (08:30)
[2018-11-17] MEDS: LEVOTHYROXINE SODIUM 50 MCG TABLET PO SCH (08:30)
[2018-11-17] MEDS: UBIDECARENONE 200 MG PO SCH (08:30)
[2018-11-17] MEDS: MORPHINE SULFATE 15 MG TABLET.SA PO SCH ×2 (08:32→20:06)
[2018-11-17] MEDS: INSULIN GLARGINE,HUM.REC.ANLOG 100 UNITS/ML VIAL SC SCH (08:38)
[2018-11-17] MEDS ORDERED: DULoxetine HCL 30 MG CAPSULE.SA PO SCH (09:00)
[2018-11-17] MEDS ORDERED: CHOLECALCIFEROL 5,000 UNIT TABLET PO SCH (09:00)
[2018-11-17] MEDS ORDERED: ALBUTEROL SULFATE 2.5 MG/0.5 ML VIAL.NEB IH PRN (10:00)
[2018-11-17] MEDS: MORPHINE SULFATE 10 MG/0.5 ML SYRINGE PO PRN ×2 (10:07→12:15)
[2018-11-17] MEDS: CHOLECALCIFEROL 1,000 UNIT CAPSULE PO SCH (10:09)
[2018-11-17] MEDS ORDERED: MORPHINE SULFATE 10 MG/0.5 ML SYRINGE PO PRN (13:29)
--- NOTE | 2018-11-17 14:57 | PN ---
Subjective - Date and Time Seen Date: 11/17/18 Time: 08:00 Subjective Narrative: Subjective: Reports pain which is minimally improved with the breakthrough medications. Was able to walk in the allison with therapy. Voiding without any complications. Tolerating by mouth intake. Denies any nausea or vomiting. Denies calf pain. Physical exam: Alert and oriented to person, place and time Right upper extremity: Palpable radial pulse. Sensation grossly intact to light touch. Dressings clean and dry. Able to flex and extend wrist and fingers. No excessive drainage. Upper arm is soft. Assessment: Postop day 1 status post right shoulder reverse total shoulder arthroplasty. Plan: Due to the need for pain control, protection of the surgical site and joint, monitoring of the wound, and the management of chronic medical conditions, she requires continued inpatient care. Continue with physical and occupational therapy. 24 hours postoperative prophylactic antibiotics. Pain control with goal to rely on oral medications. Continue bowel regimen. We will make some adjustments to her pain medicines. She does not tolerate oxycodone and thus we will switch from hydrocodone to oral morphine. She will likely need to stay an additional day in order to ensure that she has adequate oral pain control. Objective - Vitals Vitals: Last Vital Signs Temp 37.0 C 11/17/18 13:00 Pulse 80 11/17/18 13:00 Resp 18 11/17/18 13:00 BP 139/59 11/17/18 13:00 Pulse Ox 96 11/17/18 13:00 - Abnormal Lab Findings Abnormal Lab Findings: Abnormal Lab Results 11/17/18 11/17/18 Range/Units 05:05 05:05 WBC 11.5 H (4.0-10.5) K/mm3 RBC 4.13 L (4.2-5.4) M/mm3 Hgb 10.8 L (12.5-16.0) gm/dL Hct 35.1 L (37.0-47.0) % MCH 26.2 L (27-31) pg MCHC 30.8 L (32-36) g/dl RDW 14.7 H (11.5-14.0) % Random Glucose 120 H (70-110) mg/dL Assessment/Plan - Problems/Diagnosis (1) Status post reverse arthroplasty of right shoulder Problem: Acute (2) Uncontrolled pain Problem: Acute (3) Anxiety Problem: Chronic (4) COPD (chronic obstructive pulmonary disease) with acute bronchitis Problem: Chronic (5) Depression Problem: Chronic (6) Hyperglycemia due to type 2 diabetes mellitus Problem: Chronic (7) Status asthmaticus Problem: Chronic (8) Hypothyroid Problem: Chronic
[2018-11-17] MEDS: MORPHINE SULFATE 2 MG/ML DISP.SYRIN IV PRN ×2 (15:08→17:08)
[2018-11-17] MEDS: ACETAMINOPHEN 500 MG TABLET PO PRN (17:06)
[2018-11-17] MEDS: MONTELUKAST SODIUM 10 MG TABLET PO SCH (20:07)
[2018-11-17] MEDS: ROSUVASTATIN CALCIUM 20 MG TABLET PO SCH (20:07)
[2018-11-17] MEDS: AMITRIPTYLINE HCL 25 MG TABLET PO SCH (20:07)
[2018-11-17] MEDS: SENNOSIDES/DOCUSATE SODIUM 1 TAB TABLET PO SCH (20:07)
[2018-11-17] MEDS ORDERED: INSULIN REGULAR, HUMAN 100 UNITS/ML VIAL SC ONE ×3 (20:36→21:53)
[2018-11-17] MEDS ORDERED: INSULIN GLARGINE,HUM.REC.ANLOG 100 UNITS/ML VIAL SC SCH (21:00)
[2018-11-17] MEDS: HYDROmorphone HCL 2 MG TABLET PO PRN (22:16)
[2018-11-18] MEDS: HYDROmorphone HCL 2 MG TABLET PO PRN ×9 (01:54→23:34)
[2018-11-18] MEDS: KETOROLAC TROMETHAMINE 15 MG/ML VIAL IV SCH (04:09)
[2018-11-18] MEDS: INSULIN GLARGINE,HUM.REC.ANLOG 100 UNITS/ML VIAL SC SCH (08:44)
[2018-11-18] MEDS: MORPHINE SULFATE 15 MG TABLET.SA PO SCH ×2 (08:54→20:38)
[2018-11-18] MEDS: LEVOTHYROXINE SODIUM 50 MCG TABLET PO SCH (08:54)
[2018-11-18] MEDS: CHOLECALCIFEROL 1,000 UNIT CAPSULE PO SCH (08:54)
[2018-11-18] MEDS: DOCUSATE SODIUM 100 MG CAPSULE PO SCH ×2 (08:54→20:41)
[2018-11-18] MEDS: PANTOPRAZOLE SODIUM 40 MG TABLET.EC PO SCH (08:54)
[2018-11-18] MEDS: CYANOCOBALAMIN 1,000 MCG TABLET PO SCH (08:54)
[2018-11-18] MEDS: FLUTICASONE PROPIONATE 120 SPRAY INHALER NS SCH (08:55)
[2018-11-18] MEDS: LORATADINE 10 MG TABLET PO SCH (08:55)
[2018-11-18] MEDS: GABAPENTIN 300 MG CAPSULE PO SCH ×3 (08:55→17:10)
[2018-11-18] MEDS: ASPIRIN 325 MG TABLET.DR PO SCH (08:55)
[2018-11-18] MEDS: DULoxetine HCL 20 MG CAPSULE.SA PO SCH (08:55)
[2018-11-18] MEDS: FLUTICASONE PROPION/SALMETEROL 14 PUFF DISK.W.DEV IH SCH ×2 (08:56→20:39)
[2018-11-18] MEDS: UBIDECARENONE 200 MG PO SCH (08:56)
--- NOTE | 2018-11-18 10:26 | DS ---
(1) Status post reverse arthroplasty of right shoulder Problem: Acute (2) Uncontrolled pain Problem: Resolved (3) Anxiety Problem: Chronic (4) COPD (chronic obstructive pulmonary disease) with acute bronchitis Problem: Chronic (5) Depression Problem: Chronic (6) Hyperglycemia due to type 2 diabetes mellitus Problem: Chronic (7) Status asthmaticus Problem: Chronic (8) Hypothyroid Problem: Chronic Description of Stay: Mrs. Lewis was admitted to the floor after undergoing reverse right total shoulder arthroplasty. Tolerated this well. Was admitted to the floor postoperatively for 24 hours of IV antibiotics, pain control, medical comanagement, and occupational and physical therapy. OT and PT were consulted to assist with activities of daily living and ambulation. Pain was initially controlled with IV regimen. She did have some difficulty controlling her pain which required an additional hospital day stay in order to address this. She was able to tolerate an oral regimen. Was resumed on home diet and medications. Aspirin, SCD and SABRINA hose were utilized for DVT prophylaxis. Vital signs remained stable to the hospital course. She did have some elevated blood sugars which were corrected using a additional regular insulin. Serial labs were obtained which showed a final hemoglobin of 11.5 grams. BMP was reviewed and was stable. Physical examination throughout the hospital course showed an extremity that had sensation that was intact to light touch, palpable pulses, a benign wound, motor intact to the hand and wrist. Once an oral pain regimen was tolerated and physical therapy goals were met, it was felt that they were stable for discharge to home. Instructions: Continue with nonweightbearing and using her immobilizer. She will do her home exercises as instructed. Do not bathe or soak the wound. Keep the wound clean and dry and cover with dry gauze and tape. Cover wound while showering. Continue with physical therapy. Resume home diet. Report any fever over 101.5 Fahrenheit, uncontrolled pain, increased drainage, foul odor of drainage, new or increased calf pain or shortness of breath, or any other significant complaints. A 325mg dialy aspirin will be started. No driving until instructed otherwise. Follow up in approximately 10-14 days. Procedures Performed: see notes below List Procedures: Right reverse total shoulder arthroplasty Results and Findings: Lab Pending Results 11/17/18 05:05: WBC 11.5 H, RBC 4.13 L, Hgb 10.8 L, Hct 35.1 L, MCV 85.0, MCH 26.2 L, MCHC 30.8 L, RDW 14.7 H, Plt Count 325, MPV 10.4 11/17/18 05:05: Sodium 140, Plasma Sodium 140, Potassium 3.8, Chloride 104, Carbon Dioxide 29.6, Anion Gap 10.2, BUN 15, Creatinine 0.81, Est GFR (Non-Af Amer) 77, BUN/Creatinine Ratio 18.5, Random Glucose 120 H, Calcium 8.6 Disposition: Home self-care Condition: Good Discharge Activity: Non-Weight bearing, No Lifting Discharge Diet: Consistent carbs Referrals: Adenike Hernández, [facility] [Primary Care Provider] - Additional Patient Instructions (free text): Physical Therapy scheduled at [facility] Outpatient rehab on 11-19-18 at 3:00pm. please arrive at 2:45pm. Follow-up appointment scheduled in the office with Dr. Corrales on 12/01/18 at 9:30am. Prescriptions (Any new or edited meds): Aspirin [Aspirin Enteric Coated] 325 mg PO DAILY #30 tablet. HYDROmorphone HCL [Dilaudid] 2 mg PO Q2H PRN #60 tab PRN Reason: Moderate Pain (Pain Scale 4-6) Morphine Sulfate [Ms Contin] 15 mg PO Q12H #7 tablet. Sennosides/Docusate Sodium [Senokot-S] 2 tab PO HS #60 tab Complete Home Medications List: Complete Home Medication List: Aspirin [Aspirin Enteric Coated] 81 mg PO DAILY 05/16/15 Levothyroxine Sodium [Synthroid] 50 mcg PO DAILY 05/16/15 Albuterol Sulfate [Proventil Hfa] 1 - 2 puff INHALATION Q4H PRN 01/10/17 Amitriptyline HCl [Elavil] 25 mg PO HS 01/10/17 Cholecalciferol (Vitamin D3) [Vitamin D3] 1,000 unit PO DAILY 01/10/17 Gabapentin [Neurontin] 300 mg PO TID 06/02/17 Cyanocobalamin [Vitamin B-12] 1,000 mcg PO DAILY 11/13/17 Montelukast Sodium [Singulair] 10 mg PO HS 11/13/17 Mv-Mn/Folic Acid/Calcium/Vit K [Women's 50 Plus Daily Formula] 1 ea PO DAILY 11/13/17 Ubidecarenone [Co Q-10] 200 mg PO DAILY 11/13/17 atorvastatin 40 mg tablet 40 mg PO HS tab 06/01/18 docusate sodium 100 mg tablet 100 mg PO BID 06/01/18 fluticasone 250 mcg-salmeterol 50 mcg/dose blistr powdr for inhalation 1 inh IH BID 06/01/18 fluticasone 50 mcg/actuation nasal spray,suspension 1 spray NITESH DAILY 06/01/18 ipratropium-albuterol 0.5 mg-3 mg(2.5 mg base)/3 mL nebulization soln 3 ml IH Q4H PRN ml 06/01/18 meclizine 25 mg tablet 25 mg PO TID PRN 06/01/18 pantoprazole 40 mg tablet,delayed release 40 mg PO DAILY 06/02/18 Cetirizine HCl [Zyrtec] 10 mg PO DAILY 11/16/18 Duloxetine HCl [Cymbalta] 60 mg PO DAILY 11/16/18 Insulin Glargine,Hum.rec.anlog [Toujeo Solostar] 200 unit SQ DAILY 11/16/18 Lisinopril/Hydrochlorothiazide [Lisinopril-Hctz 10-12.5 mg Tab] 1 ea PO DAILY 11/16/18 Tiotropium [place] [Spiriva] 18 mcg INHALATION DAILY PRN 11/16/18 Aspirin [Aspirin Enteric Coated] 325 mg PO DAILY #30 tablet. 11/18/18 HYDROmorphone HCL [Dilaudid] 2 mg PO Q2H PRN #60 tab 11/18/18 Morphine Sulfate [Ms Contin] 15 mg PO Q12H #7 tablet.sa 11/18/18 Sennosides/Docusate Sodium [Senokot-S] 2 tab PO HS #60 tab 11/18/18 Amb Orders for Discharge: PT Evaluation and Treatment* Facility: [facility], Location: Rehabilitation Services
[2018-11-18] MEDS: ACETAMINOPHEN 500 MG TABLET PO PRN (11:51)
[2018-11-18] MEDS: ACETAMINOPHEN 500 MG TABLET PO SCH ×2 (17:13→23:33)
[2018-11-18] MEDS: SENNOSIDES/DOCUSATE SODIUM 1 TAB TABLET PO SCH (20:40)
[2018-11-18] MEDS: ROSUVASTATIN CALCIUM 20 MG TABLET PO SCH (20:40)
[2018-11-18] MEDS: AMITRIPTYLINE HCL 25 MG TABLET PO SCH (20:41)
[2018-11-18] MEDS: MONTELUKAST SODIUM 10 MG TABLET PO SCH (20:42)
[2018-11-19] MEDS: HYDROmorphone HCL 2 MG TABLET PO PRN ×3 (02:38→07:44)
[2018-11-19] MEDS: ACETAMINOPHEN 500 MG TABLET PO SCH (05:35)
[2018-11-19] MEDS: FLUTICASONE PROPION/SALMETEROL 14 PUFF DISK.W.DEV IH SCH (08:21)
[2018-11-19] MEDS: ASPIRIN 325 MG TABLET.DR PO SCH (08:22)
[2018-11-19] MEDS: LORATADINE 10 MG TABLET PO SCH (08:23)
[2018-11-19] MEDS: DOCUSATE SODIUM 100 MG CAPSULE PO SCH (08:23)
[2018-11-19] MEDS: FLUTICASONE PROPIONATE 120 SPRAY INHALER NS SCH (08:25)
[2018-11-19] MEDS: DULoxetine HCL 20 MG CAPSULE.SA PO SCH (08:25)
[2018-11-19] MEDS: INSULIN GLARGINE,HUM.REC.ANLOG 100 UNITS/ML VIAL SC SCH (08:26)
[2018-11-19] MEDS: MORPHINE SULFATE 15 MG TABLET.SA PO SCH (08:27)
[2018-11-19] MEDS: GABAPENTIN 300 MG CAPSULE PO SCH (08:27)
[2018-11-19] MEDS: LEVOTHYROXINE SODIUM 50 MCG TABLET PO SCH (08:28)
[2018-11-19] MEDS: CHOLECALCIFEROL 1,000 UNIT CAPSULE PO SCH (08:29)
[2018-11-19] MEDS: PANTOPRAZOLE SODIUM 40 MG TABLET.EC PO SCH (08:30)
[2018-11-19] MEDS: CYANOCOBALAMIN 1,000 MCG TABLET PO SCH (08:30)
[2018-11-19] MEDS: UBIDECARENONE 200 MG PO SCH (08:31)
[2018-11-19 08:49] VITALS: BP 151/62
== END 2018-11-19 09:10 | disposition home or self-care (01) | DRG 483 ==
LOC: MS 06:19
PROVIDERS: ADMIT Orthopaedic Surgery; ATTEND Orthopaedic Surgery
DX: F41.9 Anxiety disorder, unspecified; J20.9 Acute bronchitis, unspecified; J45.902 Unspecified asthma with status asthmaticus; E11.65 Type 2 diabetes mellitus with hyperglycemia; E78.5 Hyperlipidemia, unspecified; M19.011 Primary osteoarthritis, right shoulder; J44.9 Chronic obstructive pulmonary disease, unspecified; E11.9 Type 2 diabetes mellitus without complications; Z98.890 Other specified postprocedural states; G89.18 Other acute postprocedural pain; J44.0 Chronic obstructive pulmonary disease with (acute) lower respiratory infection; I10 Essential (primary) hypertension; M75.101 Unspecified rotator cuff tear or rupture of right shoulder, not specified as traumatic; E03.9 Hypothyroidism, unspecified
CPT/HCPCS: 36415; 73030; 80048; 85027; 97110; 97116; 97140; 97161; 97165; 97535; J2405